=== PATIENT | male | born 1975 | race Caucasian/White ===

== ENCOUNTER 2022-11-29 17:45 | Emergency (ER) | payer MEDICAID, SELFPAY ==
[2022-11-29 17:47] VITALS: BP 135/82; PULSE 107; RESP 22; TEMP 37.2; O2SAT 97; BMI 29.5
--- NOTE | 2022-11-29 17:53 | ECG_ITS ---
APPROVED REPORT Exam: Resting ECG HR:94 bpm ECG Measurements Heart Rate 94 AXES MI 140 P 50 QRSd 89 QRS 23 QT 377 T 28 QTc 429 Conclusion SINUS RHYTHM NONSPECIFIC ST & T-WAVE ABNORMALITY BORDERLINE ECG UNCONFIRMED REPORT Electronically signed by : Abdoulaye Garcia MD 12/01/2022 07:36:30
--- NOTE | 2022-11-29 18:14 | XR_ITS ---
PROCEDURE INFORMATION: Exam: XR Chest Exam date and time: 11/29/2022 6:38 PM Age: 47 years old Clinical indication: Cough; Additional info: SOA, cough TECHNIQUE: Imaging protocol: Radiologic exam of the chest. Views: 2 views. COMPARISON: No relevant prior studies available. FINDINGS: Lungs: Lungs are clear. No consolidation. Pleural spaces: No pleural effusion. No pneumothorax. Heart/Mediastinum: Cardiomediastinal silhouette is normal. Bones/joints: No acute abnormality. Other findings: Subcentimeter indeterminate radiopaque density overlies the anterior left upper abdomen. IMPRESSION: No acute cardiopulmonary disease.
[2022-11-29 18:23] LABS: Influenza A, PCR Not Detected (NotDetected); Influenza B, PCR Not Detected (NotDetected)
[2022-11-29 18:43] LABS: Coronavirus 19, PCR Detected (NotDetected)
--- NOTE | 2022-11-29 19:13 | HMH.EDGENADL ---
Discharge Plan Disposition Patient Disposition: Home, Self-Care Prescriptions Prescriptions: New ondansetron 4 mg tablet,disintegrating 4 mg PO Q8H PRN (Reason: nausea and vomiting) 4 Days Qty: 10 0RF Referrals Follow up/Referrals: Britni Lin [Primary Care Provider] - See instructions Activity Restrictions/Add. Instructions Additional Instructions/Restrictions: At this time it was felt you are safe to be discharged home. If new or worsening symptoms please do not hesitate to return the emergency department. If symptoms persist please follow-up with your family doctor as you are able. Please take medications as prescribed. Clinical Impressions Clinical Impression: COVID-19 Discharge ED Provider: Uday Briones General Adult HPI General Chief complaint: Fever Stated complaint: SOA,vomiting Time Seen by Provider: 11/29/22 18:00 Mode of Arrival: Family Vehicle Source of Information: Patient Limitations: No Limitations Description of Symptoms (Recalled from ER Triage Doc. by RN): Pt c/o headache, body aches, SOA, cough, nausea with dark emesis 1x and continued dry heaves. He also reports fever, t-max 102.5 yesterday. He took Motrin this morning. 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 History of Present Illness HPI narrative: Patient is a 47-year-old male with no pertinent past medical history presents emergency department for evaluation of multiple complaints. Patient has had shortness of breath, cough, vomiting, body aches, headache over the last 24 to 48 hours. Headache is generalized without focal pain. Symptoms refractory to Tylenol and ibuprofen. No other acute complaints at this time. Related Data Previous Rx's Medication Instructions Recorded ondansetron 4 mg disintegrating 4 mg PO Q8H PRN nausea and 11/29/22 tablet vomiting 4 days #10 tabs Allergies Allergy/AdvReac Type Severity Reaction Status Date / Time No Known Allergies Allergy Verified 11/29/22 18:14 [facility] Disclaimer: The information contained in this section may have been updated after the patient was seen, as this information can be updated by other users. Social History Smoking Status: Current every day smoker alcohol intake: never current occupational status: other Travel in the last 8 weeks: None ROS Obtained: Yes Systems reviewed as appropriate & no additional complaints except as documented Physical Exam General General appearance: alert and in no apparent distress Head Head exam: atraumatic and normocephalic Eye Eye exam: Present PERRL and EOMI ENT ENT exam: Present mucous membranes moist Neck Neck exam: Present normal inspection Chest Chest inspection: Present normal inspection and symmetric chest wall rise Respiratory Respiratory exam: Present normal lung sounds bilaterally; Absent respiratory distress Cardiovascular Cardiovascular exam: Present normal rhythm and tachycardia Abdominal Exam Abdominal exam: Present soft; Absent tenderness Extremities Exam Extremities exam: Present normal inspection Neurological Exam Neurological exam: Present alert and CN II-XII intact; Absent motor sensory deficit Psychiatric Psychiatric exam: Present normal affect Skin Skin exam: Present warm and dry Medical Decision Making Noé Inquiry Pt receiving controlled substance: No Vital Signs: 11/29/22 17:47 11/29/22 20:02 Temperature 98.9 F 98.1 F Temperature Source Oral Pulse Rate 83 Pulse Rate [Right] 107 H Respiratory Rate 22 16 Blood Pressure 133/90 Blood Pressure [Right Arm] 135/82 Blood Pressure Mean [Right Arm] 99 Blood Pressure Source [Right Arm] Automatic Cuff 02 Sat by Pulse Oximetry 97 Oxygen Delivery Method Room Air Lab Data Lab Results 11/29/22 17:56: SARS-CoV-2 (PCR) Detected A, Influenza A Untype (PCR) Not detected, Influenza Type B (PCR) Not detected Orders (Doreen
--- NOTE | 2022-11-29 19:49 | PC.NURSE ---
Started PO challenge with water & crackers
[2022-11-29 20:02] VITALS: BP 133/90; PULSE 83; RESP 16; TEMP 36.7
== END 2022-11-29 20:04 | disposition home or self-care (01) ==
PROVIDERS: Emergency Provider Emergency Medicine; PCP Nurse Practitioner
DX: U07.1 COVID-19 (principal); R51.9 Headache, unspecified; R06.02 Shortness of breath; F17.200 Nicotine dependence, unspecified, uncomplicated; R00.0 Tachycardia, unspecified
CPT/HCPCS: 71046; 87636; 93005; 96361; 96374; 96375; 99284; J0131; J2405

== ENCOUNTER 2023-07-07 11:50 | Emergency (ER) | payer MEDICAID, SELFPAY ==
[2023-07-07 11:58] VITALS: BP 110/65; PULSE 88; RESP 20; TEMP 36.9; O2SAT 99; BMI 29.5
--- NOTE | 2023-07-07 12:09 | US_ITS ---
FINAL REPORT CLINICAL HISTORY: vomiting FINDINGS: Sonographic images of the right upper quadrant were obtained. The pancreas is partially obscured.The liver has an unremarkable appearance.The gallbladder appears normal without evidence of gallstones.There is no evidence of biliary ductal dilatation.The common duct measures 4mm. Limited images of the right kidney are unremarkable. IMPRESSION: Unremarkable right upper quadrant ultrasound. Reviewed, Interpreted and Dictated by Cristi Bonilla MD Transcribed by Sarahy Webber Authenticated and [facility]
--- NOTE | 2023-07-07 12:10 | ED_ITS ---
Discharge Plan Disposition Patient Disposition: Home, Self-Care Condition: Good Prescriptions Prescriptions: New ondansetron 4 mg tablet,disintegrating 4 mg PO Q6H PRN (Reason: nausea and vomiting) 4 Days Qty: 16 0RF No Action ondansetron 4 mg tablet,disintegrating 4 mg PO Q8H PRN (Reason: nausea and vomiting) 4 Days Qty: 10 0RF Referrals Follow up/Referrals: Nadia Sam APRN [Primary Care Provider] - See instructions Activity Restrictions/Add. Instructions Additional Instructions/Restrictions: You have been evaluated in the ED for your complaints. You may follow-up with your PCP in the next 3 to 5 days. Please return to ED for any new or worsening symptoms. I have written for Rodolfo to assist with your symptoms at home. Please use this as needed. Clinical Impressions Clinical Impression: Vomiting, Abdominal pain Instructions Patient Instructions: DI for Acute Abdominal Pain Discharge ED Provider: Uday Briones General Adult HPI <Uday Briones MD - Last Filed: 07/07/23 14:56> General Chief complaint: Abdominal Pain Stated complaint: abd pain Time Seen by Provider: 07/07/23 12:00 Mode of Arrival: Ambulatory Source of Information: Patient Limitations: No Limitations Description of Symptoms (Recalled from ER Triage Doc. by RN): pt to ed c/o left sided abd pain. pt states for the last week, every time he eats his stomach cramps on the left side and he vomits. pt states this happens approx 30 mins after a meal. pt denies diarrhea. History of Present Illness HPI narrative: Patient is a 48-year-old male with no pertinent past medical history presents emergency department for evaluation of stomach cramps and vomiting. Onset was acute, over the last week, vomiting is nonbloody. When he eats solids he develops vague periumbilical and epigastric pain, has episodes of vomiting. He is able to tolerate liquid and has continued urine output. No surgeries in his abdomen. No reported chest pain. No other acute complaints at this time. Related Data Previous Rx's Medication Instructions Recorded ondansetron 4 mg disintegrating 4 mg PO Q8H PRN nausea and 11/29/22 tablet vomiting 4 days #10 tabs ondansetron 4 mg disintegrating 4 mg PO Q6H PRN nausea and 07/07/23 tablet vomiting 4 days #16 tabs Allergies Allergy/AdvReac Type Severity Reaction Status Date / Time No Known Allergies Allergy Verified 11/29/22 18:14 PFSH <Uday Briones MD - Last Filed: 07/07/23 14:56> [facility] Disclaimer: The information contained in this section may have been updated after the patient was seen, as this information can be updated by other users. Social History (Updated 11/30/22 @ 00:09 by Uday Briones MD) Smoking Status: Never smoker alcohol intake: never current occupational status: other Travel in the last 8 weeks: None <Uday Briones MD - Last Filed: 07/07/23 14:56> ROS Obtained: Yes Systems reviewed as appropriate & no additional complaints except as documented Physical Exam <Uday Briones MD - Last Filed: 07/07/23 14:56> General General appearance: alert and in no apparent distress Head Head exam: atraumatic and normocephalic Eye Eye exam: Present PERRL and EOMI ENT ENT exam: Present mucous membranes moist Neck Neck exam: Present normal inspection Chest Chest inspection: Present normal inspection and symmetric chest wall rise Respiratory Respiratory exam: Present normal lung sounds bilaterally; Absent respiratory distress Cardiovascular Cardiovascular exam: Present regular rate and normal rhythm Abdominal Exam Abdominal exam: Present soft; Absent tenderness or guarding Extremities Exam Extremities exam: Present normal inspection Neurological Exam Neurological exam: Present alert Psychiatric Psychiatric exam: Present normal affect Skin Skin exam: Present warm and dry Medical Decision Making <Uday Briones MD - Last Filed: 07/07/23 14:56> Noé Inquiry Pt receiving controlled substance: No Vital Signs: 07/07/23 11:58 07/07/23 13:01 07/07/23 15:00 Temperature 98.4 F Temperature Source Oral Pulse Rate 44 L 47 L Pulse Rate [Left Radial] 88 Respiratory Rate 20 Blood Pressure 117/87 130/93 H Blood Pressure [Right Arm] 110/65 Blood Pressure Mean 105 Blood Pressure Mean [Right Arm] 80 02 Sat by Pulse Oximetry 99 96 98 Oxygen Delivery Method Room Air Room Air Lab Data Lab Results 07/07/23 11:58: WBC 5.2, RBC 5.22, Hgb 14.6, Hct 44.3, MCV 85.0, MCH 28.0, MCHC 32.9, RDW 14.3, Plt Count 269, MPV 8.2, Neut % (Auto) 60.1, Lymph % (Auto) 30.9, [place] % (Auto) 5.2, Eos % (Auto) 2.3, Baso % (Auto) 1.5, Neut # (Auto) 3.1, Lymph # (Auto) 1.6, [place] # (Auto) 0.3, Eos # (Auto) 0.1, Baso # (Auto) 0.1, Sodium 141, Potassium 3.7, Chloride 108 H, Carbon Dioxide 28, Anion Gap 8.7, BUN 12, Creatinine 1.00, Estimated Creat Clear 118, Estimated GFR 80, Est GFR ( Amer) 97, Glucose 133 H, Calcium 9.3, Total Bilirubin 0.5, AST 34, ALT 24, Alkaline Phosphatase 86, Troponin I < 0.01, Total Protein 7.0, Albumin 4.2, Globulin 2.8, Albumin/Globulin Ratio 1.5, Lipase 59 07/07/23 14:30: Urine Color Yellow, Urine Appearance Clear, Urine pH 6.0, Ur Specific [place] >= 1.030, Urine Protein Trace, Urine Glucose (UA) Trace, Urine Ketones Negative, Urine Blood Trace-i, Urine Nitrate Negative, Urine Bilirubin 1+ A, Urine Urobilinogen 0.2, Ur Leukocyte Esterase Negative, Urine RBC 3-5, Urine WBC Occasional, Ur Squamous Epith Cells Occasional, Calcium Oxalate Crystal 1+, Urine Bacteria Trace, Urine Mucus Trace 07/07/23 11:58 07/07/23 11:58 Orders (Tests/Meds): ED MEDICATIONS Discontinued Medications Generic Name Dose Route Start Last Admin Trade Name Freq PRN Reason Stop Dose Admin Belladonna Alkaloids 60 ml 07/07/23 12:09 07/07/23 12:11 Belladonna Alkaloids 60 Ml Ml PO 07/07/23 12:10 60 ml ONCE ONE Administration Lactated Ringer's 1,000 mls @ 999 mls/hr 07/07/23 13:49 07/07/23 13:51 Lactated Ringer's 1000 Ml Bag IV 07/07/23 14:49 999 mls/hr .Q1H1M ONE Administration ORDERS Category Date Time Status US RUQ [US abdomen limited] Stat Exams 04/29/24 12:09 Completed CBC w/Auto Diff [Complete Blood Count Auto Diff] Stat Lab 07/07/23 11:58 Completed CMP [Comprehensive Metabolic Panel] Stat Lab 07/07/23 11:58 Completed Lipase Stat Lab 07/07/23 11:58 Completed Trop I [Troponin I] Stat Lab 07/07/23 11:58 Completed Troponin I Q3H Lab 07/07/23 15:15 Ordered Troponin I Q3H Lab 07/07/23 18:15 Ordered UA [Urinalysis and Microscopic] Stat Lab 07/07/23 14:30 Completed ECG Data Tracing #1: Independently interpreted by me, rate 72, rhythm is regular, axis is normal, no ST elevation in anatomical contiguous leads, QTc 425. Medical Decision Narrative: In summary patient is a 48-year-old male past medical history described above who presents emergency department for evaluation of transient abdominal pain and vomiting. Patient is hemodynamically stable nontoxic-appearing upon arrival, afebrile. Patient is not particularly tender in any quadrant of his abdomen. Differential includes symptomatic cholelithiasis, pancreatitis, viral syndrome, atypical ACS, among others. Workup was conducted with hematologic labs, urinalysis, right upper quadrant ultrasound, EKG, single troponin. Initial inventions include Zofran, GI cocktail. Workup reviewed by me, hematologic labs are nonactionable. Ultrasound performed and subsequent evaluation pending at time of transfer care to the oncoming physician, Dr. Cohn. <Yoni Cohn, DO - Last Filed: 07/07/23 15:42> Vital Signs: 07/07/23 11:58 07/07/23 13:01 07/07/23 15:00 Temperature 98.4 F Temperature Source Oral Pulse Rate 44 L 47 L Pulse Rate [Left Radial] 88 Respiratory Rate 20 Blood Pressure 117/87 130/93 H Blood Pressure [Right Arm] 110/65 Blood Pressure Mean 105 Blood Pressure Mean [Right Arm] 80 02 Sat by Pulse Oximetry 99 96 98 Oxygen Delivery Method Room Air Room Air Lab Data Lab Results 07/07/23 11:58: WBC 5.2, RBC 5.22, Hgb 14.6, Hct 44.3, MCV 85.0, MCH 28.0, MCHC 32.9, RDW 14.3, Plt Count 269, MPV 8.2, Neut % (Auto) 60.1, Lymph % (Auto) 30.9, [place] % (Auto) 5.2, Eos % (Auto) 2.3, Baso % (Auto) 1.5, Neut # (Auto) 3.1, Lymph # (Auto) 1.6, [place] # (Auto) 0.3, Eos # (Auto) 0.1, Baso # (Auto) 0.1, Sodium 141, Potassium 3.7, Chloride 108 H, Carbon Dioxide 28, Anion Gap 8.7, BUN 12, Creatinine 1.00, Estimated Creat Clear 118, Estimated GFR 80, Est GFR ( Amer) 97, Glucose 133 H, Calcium 9.3, Total Bilirubin 0.5, AST 34, ALT 24, Alkaline Phosphatase 86, Troponin I < 0.01, Total Protein 7.0, Albumin 4.2, Globulin 2.8, Albumin/Globulin Ratio 1.5, Lipase 59 07/07/23 14:30: Urine Color Yellow, Urine Appearance Clear, Urine pH 6.0, Ur Specific [place] >= 1.030, Urine Protein Trace, Urine Glucose (UA) Trace, Urine Ketones Negative, Urine Blood Trace-i, Urine Nitrate Negative, Urine Bilirubin 1+ A, Urine Urobilinogen 0.2, Ur Leukocyte Esterase Negative, Urine RBC 3-5, Urine WBC Occasional, Ur Squamous Epith Cells Occasional, Calcium Oxalate Crystal 1+, Urine Bacteria Trace, Urine Mucus Trace Orders (Tests/Meds): ED MEDICATIONS Discontinued Medications Generic Name Dose Route Start Last Admin Trade Name Freq PRN Reason Stop Dose Admin Belladonna Alkaloids 60 ml 07/07/23 12:09 07/07/23 12:11 Belladonna Alkaloids 60 Ml Ml PO 07/07/23 12:10 60 ml ONCE ONE Administration Lactated Ringer's 1,000 mls @ 999 mls/hr 07/07/23 13:49 07/07/23 13:51 Lactated Ringer's 1000 Ml Bag IV 07/07/23 14:49 999 mls/hr .Q1H1M ONE Administration ORDERS Category Date Time Status US RUQ [US abdomen limited] Stat Exams 07/07/23 12:09 Completed CBC w/Auto Diff [Complete Blood Count Auto Diff] Stat Lab 07/07/23 11:58 Completed CMP [Comprehensive Metabolic Panel] Stat Lab 07/07/23 11:58 Completed Lipase Stat Lab 07/07/23 11:58 Completed Trop I [Troponin I] Stat Lab 07/07/23 11:58 Completed Troponin I Q3H Lab 07/07/23 15:15 Ordered Troponin I Q3H Lab 07/07/23 18:15 Ordered UA [Urinalysis and Microscopic] Stat Lab 07/07/23 14:30 Completed Medical Decision Narrative: In summary patient is a 48-year-old male past medical history described above who presents emergency department for evaluation of transient abdominal pain and vomiting. Patient is hemodynamically stable nontoxic-appearing upon arrival, afebrile. Patient is not particularly tender in any quadrant of his abdomen. Differential includes symptomatic cholelithiasis, pancreatitis, viral syndrome, atypical ACS, among others. Workup was conducted with hematologic labs, urinalysis, right upper quadrant ultrasound, EKG, single troponin. Initial inventions include Zofran, GI cocktail. Workup reviewed by me, hematologic labs are nonactionable. Ultrasound performed and subsequent evaluation pending at time of transfer care to the oncoming physician, Dr. Cohn. Dr. Cohn: On reassessment the patient lesli medically stable and in no acute distress. He states that his symptoms are much improved at this time. Has been able to tolerate oral intake without return of symptoms. I discussed ED workup and results including unremarkable right upper quadrant ultrasound and urine with no signs of UTI. Discussed that I will send him home with Rodolfo in the setting of his symptoms. Provided with return to ED precautions and instructions concerning PCP follow-up. Patient verbalized understanding and agreement with plan. Subsequently discharged hemodynamically stable and in no acute distress. Critical Care <Uday Briones MD - Last Filed: 07/07/23 14:56> Critical Care Time Critical Care Time: No
[2023-07-07] MEDS: BELLADONNA ALKALOIDS 60 ML ML PO (12:11)
--- NOTE | 2023-07-07 12:14 | ECG_ITS ---
APPROVED REPORT Exam: Resting ECG HR:72 bpm ECG Measurements Heart Rate 72 AXES AL 150 P 46 QRSd 101 QRS 6 QT 401 T 30 QTc 425 Conclusion SINUS RHYTHM WITH SINUS ARRHYTHMIA NONSPECIFIC T-WAVE ABNORMALITY BORDERLINE ECG Electronically signed by : CHELO FERMIN, 07/07/2023 15:21:17
[2023-07-07 12:23] LABS: Basophils # 0.1 K/mm3 (0-0.2); Basophils % 1.5 % (0.1-2.0); Eosinophils # 0.1 K/mm3 (0.0-0.4); Eosinophils % 2.3 % (0.1-12.0); Hematocrit 44.3 % (42.0-52.0); Hemoglobin 14.6 g/dL (14.1-18.0); Lymphocytes # 1.6 K/mm3 (0.7-4.5); Lymphocytes % 30.9 % (10-50); Mean Corpuscular HGB Conc 32.9 g/dL (31.8-35.4); Mean Platelet Volume 8.2 fl (7.4-10.4); Monocytes # 0.3 K/mm3 (0.1-1.0); Monocytes % 5.2 % (1.7-9.3); Neutrophils # 3.1 K/mm3 (1.8-7.8); Neutrophils % 60.1 % (37.0-80.0); Platelet Count 269 K/mm3 (142-424); Red Blood Count 5.22 M/mm3 (4.60-6.20); Red Cell Distribution Width 14.3 % (11.5-17.5); White Blood Count 5.2 K/mm3 (4.8-10.8)
[2023-07-07 12:25] LABS: Alanine Aminotransferase 24 U/L (12-78); Albumin Level 4.2 g/dl (3.5-5.0); Albumin/Globulin Ratio 1.5 (1.1-1.8); Alkaline Phosphatase 86 U/L (38-126); Anion Gap 8.7 mEq/L (5-15); Aspartate Amino Transferase 34 U/L (17-59); Bilirubin,Total 0.5 mg/dl (0.2-1.3); Blood Urea Nitrogen 12 mg/dl (9-20); Calcium 9.3 mg/dl (8.4-10.2); Carbon Dioxide 28 mmol/L (22.0-30.0); Chloride 108 mmol/L (98-107); Creatinine Clearance Estimated 118 mL/min (50-200); Estimated Glomerular Filt Rate 80 ml/min (>60); GFR (African American) 97 ML/MIN (>60); Globulin 2.8 g/dL (1.3-3.2); Glucose 133 mg/dl (74-100); Lipase 59 U/L (23-300); Potassium 3.7 mmoL/L (3.5-5.1); Sodium 141 mmol/L (136-145)
--- NOTE | 2023-07-07 12:27 | PC.NURSE ---
Pt unable to provide urine sample at this time
[2023-07-07 12:39] LABS: Troponin I < 0.01 ng/ml (0.00-0.034)
[2023-07-07 13:01] VITALS: BP 117/87; PULSE 44; O2SAT 96
[2023-07-07] MEDS: LACTATED RINGERS 1000ML 1,000 ML 999 ML IV (13:51)
[2023-07-07 14:47] LABS: Microscopic, Urine URINE MICROSCOPIC (MICROSCOPIC)
[2023-07-07 14:48] LABS: Appearance,Urine CLEAR (Clear); Blood, Urine TRACE-I (Negative); Color,Urine YELLOW (Yellow); Glucose,Urine (UA) TRACE (Negative); Ketones,Urine Negative (Negative); Leukocyte Esterase,Urine Negative (Negative); Nitrate,Urine Negative (Negative); Protein,Urine TRACE (Negative); Specific Gravity, Urine >= 1.030 (1.005-1.030); Urobilinogen,Urine 0.2 EU/dl (0.2)
[2023-07-07 15:00] VITALS: BP 130/93; PULSE 47; O2SAT 98
[2023-07-07 15:03] LABS: Bilirubin,Urine 1+ (Negative)
[2023-07-07 15:14] LABS: Bacteria,Urine Trace /lpf; Calcium Oxalate Crystals,Urine 1+ /lpf; Mucus,Urine Trace /lpf; Squamous Epithelial Cell,Urine Occasional #/hpf (0-5); WBC,Urine Occasional #/hpf (0-3)
--- NOTE | 2023-07-07 15:25 | PC.NURSE ---
spoke with radiology, staff is following up to get a read for us
--- NOTE | 2023-07-07 15:29 | PC.NURSE ---
pt able to drink with no issues at this time
[2023-07-07 15:50] VITALS: BP 134/102; PULSE 52; RESP 18; TEMP 36.9; O2SAT 97
== END 2023-07-07 15:51 | disposition home or self-care (01) ==
PROVIDERS: Emergency Provider Emergency Medicine; PCP Family Medicine
DX: R10.9 Unspecified abdominal pain (principal); R11.2 Nausea with vomiting, unspecified
CPT/HCPCS: 76705; 80053; 81001; 83690; 84484; 85025; 93005; 96360; 99284

== ENCOUNTER 2024-03-06 13:18 | Emergency (ER) | payer MEDICAID, SELFPAY ==
[2024-03-06 13:17] VITALS: BP 140/90; PULSE 90; RESP 16; TEMP 36.9; O2SAT 99
[2024-03-06 13:18] VITALS: BMI 28.7
--- NOTE | 2024-03-06 13:18 | PC.NURSE ---
DR FERMIN AT BEDSIDE
--- NOTE | 2024-03-06 13:23 | ECG_ITS ---
APPROVED REPORT Exam: Resting ECG HR:73 bpm ECG Measurements Heart Rate 73 AXES VA 137 P 32 QRSd 90 QRS -17 QT 397 T 10 QTc 423 Conclusion SINUS RHYTHM WITH SINUS ARRHYTHMIA NORMAL ECG Electronically signed by : CHELO FERMIN, 03/09/2024 07:05:31
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
[2024-03-06 13:33] LABS: Albumin Level 4.4 g/dl (3.5-5.0); Basophils # 0.1 K/mm3 (0-0.2); Basophils % 0.9 % (0.1-2.0); Chloride 102 mmol/L (98-107); Eosinophils # 0.3 K/mm3 (0.0-0.4); Eosinophils % 3.9 % (0.1-12.0); Hematocrit 47.3 % (42.0-52.0); Hemoglobin 15.3 g/dL (14.1-18.0); Lymphocytes # 1.8 K/mm3 (0.7-4.5); Lymphocytes % 27.1 % (10-50); Mean Corpuscular HGB Conc 32.3 g/dL (31.8-35.4); Mean Corpuscular Hemoglobin 27.2 pg (27.0-31.2); Mean Platelet Volume 10.7 fl (7.4-10.4); Monocytes # 0.6 K/mm3 (0.1-1.0); Monocytes % 8.8 % (1.7-9.3); Neutrophils # 3.8 K/mm3 (1.8-7.8); Neutrophils % 59.1 % (37.0-80.0); Platelet Count 244 K/mm3 (142-424); Potassium 4.2 mmoL/L (3.5-5.1); Red Blood Count 5.63 M/mm3 (4.60-6.20); Red Cell Distribution Width 13.1 % (11.5-17.5); Sodium 135 mmol/L (136-145); White Blood Count 6.5 K/mm3 (4.8-10.8)
[2024-03-06 13:35] LABS: Blood Urea Nitrogen 10 mg/dl (9-20)
[2024-03-06 13:36] LABS: Alanine Aminotransferase 26 U/L (12-78); Albumin/Globulin Ratio 1.6 (1.1-1.8); Alkaline Phosphatase 128 U/L (38-126); Anion Gap 9.2 mEq/L (5-15); Aspartate Amino Transferase 42 U/L (17-59); Bilirubin,Total 0.8 mg/dl (0.2-1.3); Calcium 9.5 mg/dl (8.4-10.2); Carbon Dioxide 28 mmol/L (22.0-30.0); Creatinine Clearance Estimated 99 mL/min (50-200); Estimated Glomerular Filt Rate 65 ml/min (>60); GFR (African American) 79 ML/MIN (>60); Globulin 2.8 g/dL (1.3-3.2); Glucose 117 mg/dl (74-100); Total Protein,Serum 7.2 g/dl (6.3-8.2)
[2024-03-06 13:40] LABS: INR 0.95 (0.9-1.1); Prothrombin Time 10.7 seconds (10.1-12.5)
[2024-03-06 13:46] LABS: Ethyl Alcohol < 10 mg/dl (0-10)
[2024-03-06 13:56] VITALS: BP 133/89; PULSE 96; O2SAT 96
[2024-03-06] MEDS: IOPAMIDOL-370 (76%);100ML BOTTLE 80 ML IV (13:59)
[2024-03-06] MEDS: 0.9 % SODIUM CHLORIDE 50 ML VIAL IV (13:59)
[2024-03-06] MEDS: SODIUM CHLORIDE 0.9% 10ML SYR (RAD ONLY) 10 ML IV (13:59)
[2024-03-06 14:15] VITALS: BP 139/84; PULSE 78; O2SAT 96
[2024-03-06] MEDS: FENTANYL 100MCG/2ML VIAL 80 MCG IV (14:16)
[2024-03-06 14:45] VITALS: PULSE 66; O2SAT 96
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
[2024-03-06 15:00] VITALS: BP 127/81; PULSE 60; O2SAT 97
[2024-03-06 15:16] VITALS: BP 131/85; PULSE 84; RESP 16; TEMP 36.8; O2SAT 99
== END 2024-03-06 15:17 | disposition home or self-care (01) ==
PROVIDERS: Emergency Provider Emergency Medicine; PCP Nurse Practitioner
DX: R10.12 Left upper quadrant pain (principal); R10.32 Left lower quadrant pain; M54.50 Low back pain, unspecified; V89.2XXA Person injured in unspecified motor-vehicle accident, traffic, initial encounter; Y93.89 Activity, other specified; Y92.410 Unspecified street and highway as the place of occurrence of the external cause
CPT/HCPCS: 70450; 71045; 71275; 72125; 72128; 72131; 72170; 74174; 80053; 80320; 85025; 85610; 93005; 96374; 99285; G0480; J3010; Q9967

== ENCOUNTER 2024-03-08 08:30 | Emergency (ER) | payer SELFPAY ==
[2024-03-08 08:46] VITALS: BP 133/96; PULSE 94; RESP 18; TEMP 36.8; O2SAT 98; BMI 31.0
--- NOTE | 2024-03-08 08:58 | PC.NURSE ---
Dr. Live at bedside
[2024-03-08 09:00] VITALS: BP 132/96; PULSE 91; O2SAT 97
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
[2024-03-08] MEDS: LIDOCAINE 5% TRANSDERMAL PATCH 1 EACH TP (09:02)
[2024-03-08] MEDS: KETOROLAC 30MG/ML VIAL 30 MG IM (09:02)
[2024-03-08] MEDS: predniSONE 20MG TAB 60 MG PO (09:02)
[2024-03-08] MEDS: ACETAMINOPHEN 500MG TAB 1000 MG PO (09:02)
[2024-03-08 09:12] VITALS: BP 132/96; PULSE 97; RESP 18; TEMP 36.8; O2SAT 98
== END 2024-03-08 09:14 | disposition home or self-care (01) ==
PROVIDERS: Emergency Provider Student in an Organized Health Care Education/Training Program; PCP Family Medicine
DX: M54.50 Low back pain, unspecified (principal); M79.604 Pain in right leg
CPT/HCPCS: 96372; 99283; J1885

== ENCOUNTER 2024-06-18 10:13 | Emergency (ER) | payer MEDICAID, SELFPAY ==
[2024-06-18] VITALS (8 sets, daily range): BP systolic 125–156; BP diastolic 83–109; PULSE 72–94; RESP 13–16; TEMP 36.8–37.1; O2SAT 95–99; BMI 31.0
--- NOTE | 2024-06-18 10:18 | ECG_ITS ---
APPROVED REPORT Exam: Resting ECG HR:74 bpm ECG Measurements Heart Rate 74 AXES PA 135 P 48 QRSd 89 QRS 20 QT 316 T 53 QTc 343 Conclusion SINUS RHYTHM NONSPECIFIC T-WAVE ABNORMALITY BORDERLINE ECG UNCONFIRMED REPORT Electronically signed by : DARIEL BENITEZ, 06/20/2024 03:41:39
--- NOTE | 2024-06-18 10:26 | XR_ITS ---
FINAL REPORT CLINICAL HISTORY: Shortness of breath COMPARISON: 03/06/2024 FINDINGS: No acute pulmonary opacity is present. There is no evidence of effusion or pneumothorax. Mediastinum is unremarkable. Heart size is normal. IMPRESSION: No acute abnormality. Reviewed, Interpreted and Dictated by Cristi Bonilla MD Transcribed by Karley Pierson Authenticated and [facility]
--- NOTE | 2024-06-18 10:27 | ED_ITS ---
Discharge Plan Disposition Patient Disposition: Home, Self-Care Chief Complaint: Shortness of Breath/Dyspnea Prescriptions Prescriptions: No Action ondansetron 4 mg tablet,disintegrating 4 mg PO Q8H PRN (Reason: nausea and vomiting) 4 Days Qty: 10 0RF methocarbamol 500 mg tablet 1,000 mg PO Q8H PRN (Reason: muscle pain and spasm) Qty: 30 0RF ondansetron 4 mg tablet,disintegrating 4 mg PO Q6H PRN (Reason: nausea and vomiting) 4 Days Qty: 16 0RF lidocaine 4 % adhesive patch,medicated 1 patch topical DAILY Qty: 5 0RF Rx Instructions: may leave on for up to 12 hrs ibuprofen 800 mg tablet 800 mg PO TID PRN (Reason: pain) 7 Days Qty: 20 0RF prednisone 50 mg tablet 50 mg PO DAILY 5 Days Qty: 5 0RF Rx Instructions: Please begin 1 day after ED visit Referrals Follow up/Referrals: Nadia Sam APRN [Primary Care Provider] - See instructions Per Riley MD [Staff Physician] - See instructions Activity Restrictions/Add. Instructions Additional Instructions/Restrictions: At this time it was felt you are safe to be discharged home. If new or worsening symptoms please do not hesitate to return the emergency department. Please call and schedule appoint with Dr. Riley as soon as you are able. Clinical Impressions Clinical Impression: Dyspnea Print Language Print Language: Latvian Discharge ED Provider: Uday Briones [facility] General Chief Complaint: Shortness of Breath/Dyspnea Stated Complaint: sob, fatigue, feet swelling, weak Time Seen by Provider: 06/18/24 10:15 History of Present Illness HPI narrative: Patient is a 49-year-old male with past medical history of COPD not on home oxygen who presents emergency department for evaluation of shortness of breath. He has had intermittent shortness of breath subacutely however over the last 24 to 48 hours he has noticed his feet intermittently swelling bilaterally, he has difficulty lying flat in bed and has to use multiple pillows, and has dyspnea on exertion. He has had previous intermittent chest pain but does not have any chest pain currently. No trauma. No other acute complaints at this time no cough. Please note that above description of symptoms, in this electronic medical record under categorization of recalled from ER triage doctor by RN are reflective of an initial nursing assessment, however, is not reflective of my full history and physical exam that was personally taken and clarified. Consequentially, this preceding description of symptoms, which may include the patient's categorized chief complaint in the EMR, do not reflect my personal clinical impression, and the ultimate description of history of present illness and patient stated complaints should be deferred to this section of the note. Unless stated otherwise or congruent with this section of the note, additional signs, symptoms, or incongruence should be interpreted as inaccurate with my clinical impression. Related Data Previous Rx's ?Medication ?Instructions ?Recorded ondansetron 4 mg disintegrating 4 mg PO Q8H PRN nausea and 11/29/22 tablet vomiting 4 days #10 tabs ondansetron 4 mg disintegrating 4 mg PO Q6H PRN nausea and 07/07/23 tablet vomiting 4 days #16 tabs methocarbamol 500 mg tablet 1,000 mg (2 x 500 mg) PO Q8H PRN 03/06/24 muscle pain and spasm #30 tabs ibuprofen 800 mg tablet 800 mg PO TID PRN pain 7 days #20 03/08/24 tabs lidocaine 4 % topical patch 1 patch topical DAILY #5 ea 03/08/24 prednisone 50 mg tablet 50 mg PO DAILY 5 days #5 tabs 03/08/24 Allergies Allergy/AdvReac Type Severity Reaction Status Date / Time No Known Allergies Allergy Verified 03/08/24 09:00 [facility] Disclaimer: The information contained in this section may have been updated after the patient was seen, as this information can be updated by other users. Social History (Updated 11/30/22 @ 00:09 by Uday Briones MD) Smoking Status: Former smoker alcohol intake: never current occupational status: other Travel in the last 8 weeks: None Have you lived/traveled outside [place] in past 30 days?: No Contact w/someone who lives/traveled outside [place] past 30 days?: No Exposure to someone with infectious disease in past 14 days?: No Do you have a fever (greater than 100.4 F or 38 C)?: No Have you tested positive for COVID-19: No Exposed to someone with COVID-19 in past 14 days?: No Do you have a sore throat?: No Do you have a cough?: No Do you have any weakness?: No Do you have any diarrhea?: No Are you experiencing any unusual bleeding?: No Do you have any muscle aches/pain?: No Do you have any abdominal pain?: No Are you experiencing loss of taste or smell?: No ROS Obtained: Yes Systems reviewed as appropriate & no additional complaints except as documented Physical Exam General General appearance: alert and in no apparent distress Head Head exam: atraumatic and normocephalic Eye Eye exam: Present PERRL and EOMI ENT ENT exam: Present mucous membranes moist Neck Neck exam: Present normal inspection Chest Chest inspection: Present normal inspection and symmetric chest wall rise Respiratory Respiratory exam: Present normal lung sounds bilaterally; Absent respiratory distress, wheezes or stridor Cardiovascular Cardiovascular exam: Present regular rate and normal rhythm Abdominal Exam Abdominal exam: Present soft; Absent tenderness Extremities Exam Extremities exam: Present normal inspection and other (No significant pitting edema BLE) Neurological Exam Neurological exam: Present alert Psychiatric Psychiatric exam: Present normal affect Skin Skin exam: Present warm and dry HEART Score HEART Score HEART Score assessment performed?: Yes History (anamnesis): Slightly suspicious ECG: Non-specific disturbance Age: 45-65 years Risk factors: 1-2 risk factors Troponin: </= normal limit HEART Score: 3 Critical Care Critical Care Time Critical Care Time: No Medical Decision Making Noé Inquiry Pt receiving controlled substance: No Vital Signs Vital Signs: 06/18/24 10:22 06/18/24 10:26 06/18/24 10:30 Temperature Temperature Source Pulse Rate 92 H 92 H 75 Pulse Rate [Left Radial] Respiratory Rate 14 13 13 Blood Pressure 156/107 H 129/98 H 136/95 H Blood Pressure [Right Arm] Blood Pressure Mean Blood Pressure Mean [Right Arm] Blood Pressure Source [Right Arm] Blood Pressure Position [Right Arm] 02 Sat by Pulse Oximetry 99 98 98 Oxygen Delivery Method Room Air Room Air Room Air 06/18/24 10:32 06/18/24 11:00 06/18/24 11:30 Temperature 98.2 F Temperature Source Oral Pulse Rate 72 77 Pulse Rate [Left Radial] 85 Respiratory Rate 13 14 16 Blood Pressure 128/89 125/83 Blood Pressure [Right Arm] 139/109 H Blood Pressure Mean 107 97 Blood Pressure Mean [Right Arm] 119 Blood Pressure Source [Right Arm] Automatic Cuff Blood Pressure Position [Right Arm] Supine 02 Sat by Pulse Oximetry 97 95 96 Oxygen Delivery Method 06/18/24 12:00 Temperature Temperature Source Pulse Rate 85 Pulse Rate [Left Radial] Respiratory Rate 13 Blood Pressure 125/83 Blood Pressure [Right Arm] Blood Pressure Mean 97 Blood Pressure Mean [Right Arm] Blood Pressure Source [Right Arm] Blood Pressure Position [Right Arm] 02 Sat by Pulse Oximetry 96 Oxygen Delivery Method Lab Data Labs: Lab Results 06/18/24 10:27: VBG pH 7.36, VBG pCO2 46.6, VBG pO2 46.1 H, VBG HCO3 25.6, VBG Total CO2 27.0, VBG O2 Saturation 82.2 H, VBG Base Excess 0.1, VBG Lactic Acid 2.1 H 06/18/24 10:28: WBC 7.0, RBC 5.53, Hgb 14.7, Hct 45.6, MCV 82.5, MCH 26.6 L, MCHC 32.2, RDW 13.5, Plt Count 286, MPV 10.1, Neut % (Auto) 43.7, Lymph % (Auto) 35.7, [place] % (Auto) 12.0 H, Eos % (Auto) 7.3, Baso % (Auto) 1.0, Neut # (Auto) 3.1, Lymph # (Auto) 2.5, [place] # (Auto) 0.8, Eos # (Auto) 0.5 H, Baso # (Auto) 0.1, D-Dimer 0.71 H, Sodium 137, Potassium 3.7, Chloride 100, Carbon Dioxide 26, Anion Gap 14.7, BUN 10, Creatinine 1.00, Estimated Creat Clear 123, Estimated GFR 80, Est GFR ( Amer) 97, Glucose 115 H, Calcium 8.6, Total Bilirubin 0.7, AST 40, ALT 20, Alkaline Phosphatase 122, Troponin I < 0.01, NT-Pro-B Natriuret Pep 29.6, Total Protein 7.3, Albumin 4.0, Globulin 3.3 H, Albumin/Globulin Ratio 1.2, HCV Ab SEAN w/Rflx PCR Qn Negative, HIV Ag/Ab Combo Qual Negative 06/18/24 10:28 06/18/24 10:28 Response Orders (Tests/Meds): ED MEDICATIONS Discontinued Medications Generic Name Dose Route Start Last Admin Trade Name Freq PRN Reason Stop Dose Admin Iopamidol 80 ml 06/18/24 11:19 06/18/24 11:20 Iopamidol-370 (76%);100ml Bottle IV 06/18/24 11:20 70 ml ONCE ONE Administration Sodium Chloride 10 ml 06/18/24 11:19 06/18/24 11:20 Sodium Chloride 0.9% 10ml Syr (Rad Only) IV 06/18/24 11:20 10 ml ONCE ONE Administration Sodium Chloride 50 ml 06/18/24 11:19 06/18/24 11:20 0.9 % Sodium Chloride 50 Ml Vial IV 06/18/24 11:20 50 ml ONCE ONE Administration ORDERS Category Date Time Status CT angio chest PE protocol Stat Cat Scan 06/18/24 11:12 Completed CXR --portable [XR chest portable] Stat Exams 06/18/24 10:26 Completed POCUS Point of Care (ER Only) Stat Exams 06/18/24 10:26 Taken BNP [NT Pro Brain Natriuretic Pep.] Stat Lab 06/18/24 10:28 Completed CBC w/Auto Diff [Complete Blood Count Auto Diff] Stat Lab 06/18/24 10:28 Completed CMP [Comprehensive Metabolic Panel] Stat Lab 06/18/24 10:28 Completed D-Dimer Stat Lab 06/18/24 10:28 Completed HIV Combo Stat Lab 06/18/24 10:28 Completed Hepatitis C Ab Qual. W/ RFX Stat Lab 06/18/24 10:28 Completed Trop I [Troponin I] Stat Lab 06/18/24 10:28 Completed Troponin I Q3H Lab 06/18/24 13:30 Ordered Troponin I Q3H Lab 06/18/24 16:30 Ordered VBG [Venous Blood Gas] Stat RT 06/18/24 10:27 Completed ECG Data Tracing #1: ECG Narrative: Independently interpreted by me rate is 74, rhythm is regular, axis is normal, no ST elevation in anatomical contiguous leads, QTc 343. MDM Narrative Medical Decision Narrative: In summary patient is a 49-year-old male with past medical history described above who presents emergency department for evaluation of shortness of breath. Patient is hemodynamically stable nontoxic-appearing upon arrival, afebrile. Patient's history is strongly consistent with developing some degree of heart failure. Differential includes ACS, pulmonary embolism, among others. Workup we conducted with hematologic labs, chest x-ray, EKG, troponin, VBG, POCUS. Initial work reviewed by me, no significant leukocytosis or anemia, D-dimer mildly elevated with compensated acid-base status given his significantly shortness of breath screening for PE will be conducted with CTA pulmonary embolism protocol. Initial troponin undetectably low, no critical electrolyte abnormality or JASON. CT imaging informally and visualized by me, no large saddle PE. Formal read shows no acute pathology. Upon repeat evaluation patient was well-appearing. Given his significant dyspnea on exertion and orthopnea I think he will benefit from cardiology evaluation which he will be referred to on outpatient basis and was given return precautions. Procedure: Procedure performed was cardiac ultrasound Indication: Shortness of breath Identified cardiac views: Cardiac parasternal long axis and apical four-chamber Findings: Cardiac activity present, gross wall motion normal, no large pericardial effusion, normal EPSS. Impression: - From above Images were saved to permanent archive The study was technically adequate CPT: 90015 This study was performed by me, and I personally interpreted all images/videos. Based on my clinical judgement, these images were adequate and did not necessitate further imaging.
[2024-06-18 10:37] LABS: Lactate Venous 2.1 mmol/L (0.4-2.0); VBG Base Excess 0.1 mmol/L (-2.4-2.3); VBG HCO3 25.6 mmol/L (23-30); VBG Oxygen Saturation 82.2 % (50-70); VBG PCO2 46.6 mmol/L (35-51); VBG PH 7.36 mmol/L (7.31-7.41); VBG PO2 46.1 mmol/L (28-40)
[2024-06-18 10:41] LABS: Basophils # 0.1 K/mm3 (0-0.2); Eosinophils # 0.5 K/mm3 (0.0-0.4); Eosinophils % 7.3 % (0.1-12.0); Hematocrit 45.6 % (42.0-52.0); Hemoglobin 14.7 g/dL (14.1-18.0); Lymphocytes # 2.5 K/mm3 (0.7-4.5); Lymphocytes % 35.7 % (10-50); Mean Corpuscular HGB Conc 32.2 g/dL (31.8-35.4); Mean Corpuscular Hemoglobin 26.6 pg (27.0-31.2); Mean Corpuscular Volume 82.5 fl (80-94); Mean Platelet Volume 10.1 fl (7.4-10.4); Monocytes # 0.8 K/mm3 (0.1-1.0); Neutrophils # 3.1 K/mm3 (1.8-7.8); Neutrophils % 43.7 % (37.0-80.0); Nucleated Red Blood Cells # 0 10^3/uL; Nucleated Red Blood Cells % 0 %; Platelet Count 286 K/mm3 (142-424); Red Blood Count 5.53 M/mm3 (4.60-6.20); Red Cell Distribution Width 13.5 % (11.5-17.5); Red Cell Distribution Width-SD 40.7 fL
[2024-06-18 10:49] LABS: Alanine Aminotransferase 20 U/L (12-78); Albumin/Globulin Ratio 1.2 (1.1-1.8); Alkaline Phosphatase 122 U/L (38-126); Anion Gap 14.7 mEq/L (5-15); Aspartate Amino Transferase 40 U/L (17-59); Bilirubin,Total 0.7 mg/dl (0.2-1.3); Blood Urea Nitrogen 10 mg/dl (9-20); Calcium 8.6 mg/dl (8.4-10.2); Carbon Dioxide 26 mmol/L (22.0-30.0); Chloride 100 mmol/L (98-107); Creatinine Clearance Estimated 123 mL/min (50-200); Estimated Glomerular Filt Rate 80 ml/min (>60); GFR (African American) 97 ML/MIN (>60); Globulin 3.3 g/dL (1.3-3.2); Glucose 115 mg/dl (74-100); Potassium 3.7 mmoL/L (3.5-5.1); Sodium 137 mmol/L (136-145); Total Protein,Serum 7.3 g/dl (6.3-8.2)
[2024-06-18 10:53] LABS: D-Dimer 0.71 ug/mL (0.0-0.5)
[2024-06-18 11:01] LABS: NT Pro Brain Natriuretic Pep. 29.6 pg/mL (0-125)
[2024-06-18 11:02] LABS: Troponin I < 0.01 ng/ml (0.00-0.034)
--- NOTE | 2024-06-18 11:12 | CT_ITS ---
FINAL REPORT TECHNIQUE: Thin section axial CT with contrast with multiplanar reconstruction This study was performed with techniques to keep radiation doses as low as reasonably achievable, (ALARA). Individualized dose reduction techniques using automated exposure control or adjustment of mA and/or kV according to the patient''s size were employed. CLINICAL HISTORY: sob elevated dimer COMPARISON: 03/06/2024 FINDINGS: Respiratory motion artifact limits assessment of subsegmental pulmonary artery branches. Pulmonary vessels enhance in normal fashion without evidence of embolism. Thoracic aorta shows no dissection or aneurysm. Groundglass opacities probably reflect poor inspiration. No pneumonia or mass is identified. There is no significant pleural effusion. There is no significant pericardial effusion. No mediastinal or hilar adenopathy is present. IMPRESSION: No gross pulmonary embolism. No obvious pneumonia. Reviewed, Interpreted and Dictated by Cristi Bonilla MD Transcribed by Nadya Harris Authenticated and . [facility]
[2024-06-18] MEDS: SODIUM CHLORIDE 0.9% 10ML SYR (RAD ONLY) 10 ML IV (11:20)
[2024-06-18] MEDS: 0.9 % SODIUM CHLORIDE 50 ML VIAL IV (11:20)
[2024-06-18] MEDS: IOPAMIDOL-370 (76%);100ML BOTTLE 80 ML IV (11:20)
--- NOTE | 2024-06-18 11:24 | PC.NURSE ---
pt came back from ct
[2024-06-18 11:43] LABS: HIV Combo NEGATIVE (Negative)
[2024-06-18 11:50] LABS: Hepatitis C Ab Qual. W/ RFX NEGATIVE (Negative)
[2024-06-18 14:38] LABS: Reflex Lactic Add Lactic Reflex
== END 2024-06-18 12:28 | disposition home or self-care (01) ==
PROVIDERS: Emergency Provider Emergency Medicine; PCP Family Medicine
DX: R06.00 Dyspnea, unspecified (principal)
CPT/HCPCS: 71045; 71275; 80053; 82803; 83880; 84484; 85025; 85378; 86803; 87389; 93005; 99285; Q9967

== ENCOUNTER 2024-07-14 12:21 | Outpatient (CLI) | payer MEDICAID, SELFPAY ==
--- NOTE | 2024-07-14 | CA_ITS ---
APPROVED REPORT Exam: Pharmacologic Technologist: Denise House Ht: 5 ft 9 in Wt: 215 lbs BSA: 2.13 m2 HR: 68 bpm BP: 130/83 mmHg Stress Test Details Test: Lexiscan HR Resting HR: 68 bpm Max Heart Rate (APMHR): 173 bpm Max HR Achieved: 96 bpm Target HR (85% APMHR): 147 bpm % of APMHR: 55 Recovery HR: 82 bpm BP Resting BP: 130.0/83.0 mmHg Max BP: 133.0/82.0 mmHg Recovery BP: 133.0/82.0 mmHg ECG Stress ECG Conclusion Symptoms: Shortness of air with Lexiscan infusion. Arrhythmias/Ectopy: ST-T Changes: Unremarkable with Lexiscan infusion. Electronically signed by : Lori Mercado MD 07/15/2024 12:48:06
--- NOTE | 2024-07-14 13:00 | NM_ITS ---
APPROVED REPORT Exam: Nuclear Stress Test Indication: htn, hyperlipidemia, fm hx, cp, sob, fatigue Patient Location: Outpatient Stress Tech: Denise House AL Tech:Mari Booker SAVANA RT (R)(N)(M) Ht: 5 ft 9 in Wt: 215 lbs HR: 70 bpm BP: 130/83 mmHg BSA: 2.13 m2 TID: 1.02 BMI: 31.7 History: htn, hyperlipidemia, fm hx, cp, sob, fatigue Procedure: Patient received 0.4 mg of intravenous Lexiscan, resting heart rate 70 bpm, resting blood pressure 130/83 mmHg, with Lexiscan maximum heart rate achieved was 96 bpm which is % of the maximum predicted heart rate and blood pressure was 130/78 mmHg. With Lexiscan, patient denied any complaint of chest pain. Cardiac Stress and Resting SPECT Images: Cardiac Stress and Resting SPECT images were obtained using technetium 99m Myoview 30.7 mCi stress and 10.70 mCi at rest. Resting and stress imaging in supine and prone positions demonstrate large sized, moderate, partially reversible perfusion defect in the inferior LV wall. Gated imaging demonstrates normal global LV systolic function. There is mild hypokinesis of the basal inferior LV wall. LVEF is calculated at 54%. Conclusion: Large sized, moderate, partially reversible perfusion defect in the inferior LV wall. Findings are suggestive of partial reversible ischemia. Gated imaging demonstrates normal global LV systolic function. There is mild hypokinesis of the basal inferior LV wall. LVEF is calculated at 54%. Electronically signed by : Lori Mercado MD 07/15/2024 12:40:43
== END 2024-07-14 23:59 | disposition home or self-care (01) ==
LOC: RAD 12:22
PROVIDERS: PCP Family Medicine; Visit Provider Physician Assistant
DX: R07.89 Other chest pain (principal); R42 Dizziness and giddiness; R94.31 Abnormal electrocardiogram [ECG] [EKG]; R06.09 Other forms of dyspnea
CPT/HCPCS: 78452; 93017; 93018

== ENCOUNTER 2024-07-16 14:33 | Outpatient (CLI) | payer OTHER, SELFPAY | END 2024-07-16 23:59 | disposition home or self-care (01) | PROVIDERS: PCP Family Medicine; Visit Provider Family Medicine | DX: Z53.9 Procedure and treatment not carried out, unspecified reason (principal) ==

== ENCOUNTER 2024-07-30 07:27 | Outpatient (CLI) | payer OTHER, SELFPAY | END 2024-07-30 23:59 | disposition home or self-care (01) | PROVIDERS: PCP Family Medicine; Visit Provider Family Medicine | DX: T14.90XD Injury, unspecified, subsequent encounter (principal); V89.2XXD Person injured in unspecified motor-vehicle accident, traffic, subsequent encounter ==

== ENCOUNTER 2024-08-13 15:04 | Outpatient (CLI) | payer MEDICAID, SELFPAY ==
--- OUTSIDE RECORDS SUMMARY | 2024-08-13 15:08 | XMS_ITS | Encounter Summary ---
Author Organization [facility] Address [address] [place] [id number] Care Team Providers Care Superintendent Service Name Role Phone Britni Fletcher APRN Primary Care Provi emperatriz Nadia Shin APRN Primary Care Provider + Encounter Details Date Type Department Care Team (Late st Contact Info) Description 10/22/2021 Transcribed Document [facility] [place] [address] [place] [address] ProviderRodri MD [address] [place] [address] Social History Tobacco Use Types Packs/Day Years Used Date Smoking Tobacco: Never Assessed Sex and Gender Information Value Date Recorded Sex Assigned at Not on file Legal Sex Male 5:37 PM CDT Gender Identity Not on file Sexual Orientation Not on file documented as of this encounter Miscellaneous Notes * Cerner Conversion Note - Rodri Vitale MD - 10/22/2021 10:47 AM CDT [facility] [address] [place] [address] TARAH HAMLIN :1975 Visit Time:10/22/2021 Your Visit Summary Your Care Team Admitting Physician - CHRISTIANO BRUNSON MD-KELLY Attending Physician - CHRISTIANO BRUNSON MD-CAR Primary Care Physician - NADIA SHIN Referring Physician - CHRISTIANO BRUNSON MD-CAR These Are Your Goals No qualifying data available. Discharge Vitals Temperature 36.4 ??C Respiratory Rate 16 Blood Pressure 138/94 What to do next Follow-Up Appointments Follow Up with CHRISTIANO BRUNSON MD-CAR When Within 1 to 2 weeks Where: [address] [place] [address]- Medications What How Much When Instructions Next Dose aspirin 81 Milligram(s) Oral Every Morning atorvastatin (atorvastatin 10 mg oral tablet) 1 Tablet(s) Oral Every Evening hydroCHLOROthiazide (hydroCHLOROthiazide 25 mg oral tablet) 1 Tablet(s) Oral Every Morning methaDONE 55 Milligram(s) Every Morning Take your medications faithfully. Do NOT skip medication. Do NOT stop taking medications without the direction of a physician. Carry a list of your medications with you at all times, and take this medication list with you to your first follow up visit. Report any side effects. Avoid herbal remedies unless discussed with your physician. As part of your treatment plan, your physician may have prescribed a limited course of a controlled substance. This medication may be given to help people with moderate or severe pain or for other medical conditions, but there are risks involved with treatment. Common side effects may include nausea, constipation, drowsiness, sweating, itching, dry mouth, and rash. More serious side effects may include cognitive and motor impairment, like problems with thinking, concentrating, alertness, and movement (e.g. slowed reflexes), and driving and operating heavy machinery can be dangerous. It is important for you to talk to your physician if you have these side effects or questions. These controlled substances can produce physical dependence and be habit-forming if taken for an extended period of time, which means that the body has gotten used to them and may experience withdrawal symptoms if they are abruptly stopped. Withdrawal symptoms can include runny nose, sweating, goose bumps, diarrhea, abdominal cramping, rapid heartbeat, difficulty sleeping, and nervousness. Please dispose of unused and medications per your retail pharmacy guidance. Allergies No Known Allergies Immunizations This Visit No Immunizations Found Education Materials Exercise Stress Test An exercise stress test is a test that is done to collect information about how your heart functions during exercise. The test is done while you are walking on a treadmill or using a stationary bike. The goal is to raise your heart rate and stress the heart. The heart is evaluated before, during, and after you exercise. An electrocardiogram (ECG) will be used to monitor the heart, and your blood pressure will also be monitored. In some cases, nuclear scanning or an ultrasound of the heart (echocardiogram) will also be done to evaluate your heart. An exercise stress test is done to look for coronary artery disease (CAD). The test may also be done to: ??? Evaluate your limits of exercise during cardiac rehabilitation. ??? Check for high blood pressure during exercise. ??? Check how well you can exercise after such treatments as coronary stenting or new medicines. ??? Check for problems with blood flow to your arms and legs during exercise. If you have an abnormal test result, this may mean that you are not getting enough blood flow to your heart during exercise. More testing may be needed to understand why your test was not normal. Tell a health care provider about: ??? Any allergies you have. ??? All medicines you are taking, including vitamins, herbs, eye drops, creams, and kxgw-ury-rvxkoyp medicines. ??? Any blood disorders you have. ??? Any surgeries you have had. ??? Any medical conditions you have. ??? Whether you are or may be . What are the risks? Generally, this is a safe procedure. However, problems may occur, including: ??? Pain or pressure in the following areas: ? Chest. ? Jaw or neck. ? Between your shoulder blades. ? Down your left arm. ??? Dizziness or lightheadedness. ??? Shortness of breath. ??? Increased or irregular heartbeats. ??? Nausea or vomiting. ??? Heart attack (rare). ??? Life-threatening abnormal heart rhythm (rare). What happens before the procedure? Follow instructions from your health care provider about eating or drinking restrictions. ? You may be told to avoid all forms of caffeine for 24 hours before the test. This includes coffee, tea (even decaffeinated tea), caffeinated sodas, chocolate, cocoa, and certain pain medicines. ??? Ask your health care provider about: ? Taking xeto-xpk-arguyip medicines, vitamins, herbs, and supplements. ? Changing or stopping your regular medicines. This is especially important if you are taking diabetes medicines or beta-tylor medicines. ? If you have diabetes, ask how you are to take your insulin or pills. It is common to adjust your insulin dose the morning of the test. ? If you are taking beta-tylor medicines, it is important to talk to your health care provider about these medicines well before the date of your test. Taking beta-tylor medicines may interfere with the test. In some cases, these medicines may need to be changed or stopped 24 hours or more before the test. ? If you wear a nitroglycerin patch, it may need to be removed prior to the test. Ask your health care provider if the patch should be removed before the test. ??? If you use an inhaler for any breathing condition, bring it with you to the test. ??? Do not apply lotions, powders, creams, or oils on your chest prior to the test. ??? Wear loose-fitting clothes and comfortable walking shoes. ??? Do not use any products that contain nicotine or tobacco, such as cigarettes and e-cigarettes, for 4 hours before the test or as told by your health care provider. If you need help quitting, ask your health care provider. What happens during the procedure? Multiple electrodes will be attached to your chest. ??? Multiple wires will be attached to the electrodes. These will transfer the electrical impulses from your heart to the ECG machine. Your heart will be monitored both at rest and while exercising. ??? If you are also having an echocardiogram or nuclear scanning, images of your heart will be taken before and after you exercise. ??? A blood pressure cuff will be placed around your arm to measure your blood pressure throughout the test. You will feel it tighten and loosen throughout the test. ??? You will walk on a treadmill or use a stationary bike. If you cannot use these, you may be asked to turn a crank with your hands. ??? You will start at a slow pace or level on the exercise machine. The exercise difficulty will be slowly increased to raise your heart rate. In the case of a treadmill, the speed and incline will gradually be increased. ??? You may be asked to periodically breathe into a tube. This measures the gases you breathe out. ??? You will be asked how you are feeling throughout the test. You will be asked to rate your level of exertion. ??? Tell the staff right away if you feel: ? Chest pain. ? Dizziness. ? Shortness of breath. ? Too fatigued to continue. ? Pain or aching in your legs or arms. ??? You will exercise until you have symptoms or until you reach a target heart rate. The test will also be stopped if you have changes in your blood pressure or ECG readings, or if you develop an irregular heartbeat (arrhythmia). The procedure may vary among health care providers and hospitals. What happens after the procedure? You will sit down and recover from the exercise. Your blood pressure, heart rate, and ECG will be monitored until you recover. ??? You may return to your normal schedule, including diet, activities, and medicines, unless your health care provider tells you otherwise. ??? It is up to you to get your test results. Ask your health care provider, or the department that is doing the test, when your results will be ready. Summary ??? An exercise stress test is a test that is done to collect information about how your heart functions during exercise. ??? This test is done to look for coronary artery disease (CAD). ??? During this test, you will walk on a treadmill or use an exercise bike to raise your heart rate. ??? It is important to follow instructions from your health care provider about eating and drinking restrictions before the test. This may include avoiding caffeine and certain medicines before the test. This information is not intended to replace advice given to you by your health care provider. Make sure you discuss any questions you have with your health care provider. Document Revised: 10/27/2020 Document Reviewed: 10/27/2020 [employer] Patient Education ?? 2021 [employer] Emergency Awareness and Preventative Care STROKE is an EMERGENCY Every Minute Counts Act FAST and Check for these signs: FACE Does the face look uneven? ARM Does one arm drift down? SPEECH Does their speech sound strange? TIME Call at any sign of stroke Stroke Risk Factors Atrial Fibrillation (irregular heartbeat) Diabetes Family history of stroke Heart Disease Heavy alcohol use High Blood Pressure High Cholesterol Physical inactivity and obesity Smoking Cigarette Smoking The facts are clear, cigarette smoking will shorten your life. Smoking can cause many illnesses along the way. As a healthcare provider, we recommend that you stop smoking. Assistance with quitting is available by contacting 1-642-BUDH-NOW. This is a free resource providing counseling, support, and referral. Or you may contact your personal physician. National Suicide Prevention Lifeline: The National Suicide Prevention Lifeline is a national network of local crisis centers that provides free and confidential emotional support to people in suicidal crisis or emotional distress 24 hours a day, 7 days a week. Don't Wait! Stop a Heart Attack Before it Starts What is a heart attack? A heart attack is damage or to a part of the heart from severely decreased or lack of blood flow to the heart. Over time, arteries can become narrow from the buildup of fat and cholesterol, which is called plaque. The plaque can rupture causing a blood clot to form. When the blood clot forms, the artery can become severely narrowed or completely blocked, causing a heart attack. Heart attack is the leading cause of in the [place]. 85% of muscle damage occurs within the first 2 hours. Delay in the recognition of heart attack symptoms increases the chances of . Know the early symptoms of a heart attack: Nausea Feeling of fullness in chest Jaw Pain Pain that travels down one or both arms Fatigue/being tired Anxiety Back Pain Chest pressure, squeezing, or discomfort Shortness of breath Sweating, or a cold sweat Feeling of impending doom There are unusual signs of a heart attack, too! Women, the elderly, and diabetics may present with atypical symptoms: Fainting/dizziness Weakness Confusion Risk Factors for a Heart Attack Some heart disease risk factors, such as age and family history, cannot be changed. Others, like smoking and lack of exercise, can be changed. Smoking High Cholesterol High Blood Pressure Family History Obesity Age Gender (Males are at higher risk) Lack of Exercise Diabetes Diet Stress Excessive Alcohol Intake If you or someone you know is experiencing the signs and symptoms of a heart attack, DON???T DELAY. Call immediately and seek help. If someone collapses, perform CPR! Do not attempt to drive if you are having symptoms of heart attack. Hands-Only CPR Why Hands-Only CPR? Hands-Only CPR has been shown to be as effective as conventional CPR for cardiac arrests that occur outside of a hospital. Survival depends on immediately receiving CPR from someone nearby. How do you perform Hands-Only CPR? There are two easy steps: Call if you see a teen or adult collapse Push hard and fast in the center of the chest at a beat of 100 beats per minute. Save a life! 4 WAYS TO GET AHEAD OF SEPSIS SEPSIS is a MEDICAL EMERGENCY. Time matters! Infections put you and your family at risk for a life-threatening condition called sepsis. Sepsis is the body's extreme response to an infection. It is life-threatening, and without timely treatment, sepsis can rapidly lead to tissue damage, organ failure, and . Sepsis happens when an infection you already have-in your skin, lungs, urinary tract or somewhere else-triggers a chain reaction throughout your body. 1 PREVENT INFECTIONS Take good care of chronic conditions. Talk to your doctor about getting the recommended vaccines. 2 PRACTICE GOOD HYGIENE Wash your hands frequently. Keep cuts or open sores clean and covered until they are healed. 3 KNOW THE SYMPTOMS Confusion or disorientation Shortness of breath High heart rate Fever, shivering, or feeling very cold Extreme pain or discomfort Clammy or sweaty skin 4 ACT FAST Get medical care IMMEDIATELY if you suspect sepsis or if you have an infection that is not getting better or is getting worse. To learn more about sepsis and how to prevent infections, visit www.cdc.gov/sepsis. Test Results Laboratory or Other Results This Visit (last charted value for your 10/22/2021 visit) No Laboratory or Other Results This Visit Patient Name:HAMLINTARAH Gunjan I have received and understand this information and was given the opportunity to ask questions. Patient/Ship'S Captain Name: Patient/Ship'S Captain Signature: Relationship to Patient: Clinician/Hospital Ship'S Captain Signature: Date: Electronically signed by Interface, [facility] Conversion Feed Research Technician Cerner at 06/28/2022 10:42 AM CDT documented in this encounter Plan of Treatment Not on file documented as of this encounter Visit Diagnoses Not on filedocumented in this encounter Care Teams Superintendent Service Relationship Specialty Start Date End Date Britni Fletcher, TAYLOR [address] [address] PCP - General Family Medicine 07/01/22 03/17/23 Nadia Shin APRN [address] [place] [address] PCP - General Nurse Practitioner 03/18/23 documented as of this encounter
--- OUTSIDE RECORDS SUMMARY | 2024-08-13 15:08 | XMS_ITS | Encounter Summary ---
Author Organization [facility] Address [address] [place] [address] Care Team Providers Care Butcher All Round Name Role Phone Britni Fletcher APRN Primary Care Provi emperatriz Nadia Sam APRN Primary Care Provider + Encounter Details Date Type Department Care Team (Late st Contact Info) Description 10/22/2021 Transcribed Document [facility] [place] [address] [place] [address] ProviderRodri MD [address] [place] [address] Social History Tobacco Use Types Packs/Day Years Used Date Smoking Tobacco: Never Assessed Sex and Gender Information Value Date Recorded Sex Assigned at Not on file Legal Sex Male 5:37 PM CDT Gender Identity Not on file Sexual Orientation Not on file documented as of this encounter Miscellaneous Notes * Cerner Conversion Note - Rodri ProviderMD - 10/22/2021 10:46 AM CDT Stroke/Warfarin Instructions Entered On: 10/22/2021 10:46 EDT Performed On: 10/22/2021 10:46 EDT by AMANDA CARDOZA, RN Stroke/Warfarin Instructions Stroke/TIA Discharge Ins : N/A Warfarin Discharge Ins : N/A AMANDA CARDOZA RN - 10/22/2021 10:46 EDT Electronically signed by Giovanni Mckinney Conversion Building Energy Consultant Cerner at 06/28/2022 10:48 AM CDT documented in this encounter Plan of Treatment Not on file documented as of this encounter Visit Diagnoses Not on filedocumented in this encounter Care Teams Butcher All Round Relationship Specialty Start Date End Date Alisson Fletcherfer N, AUTOMOBILE SALESMAN [address] [facility] [address] [place] [address] PCP - General Family Medicine 07/01/22 03/17/23 Nadia Sam, AUTOMOBILE SALESMAN [address] [place] [address] PCP - General Nurse Practitioner 03/18/23 documented as of this encounter
--- OUTSIDE RECORDS SUMMARY | 2024-08-13 15:09 | XMS_ITS | Encounter Summary ---
Author Organization [facility] [employer] [facility] Address [address] [place] [address] Care Team Providers Care Sr Technical Sales Consultant Name Role Phone Britni Fletcher APRN Primary Care Provi emperatriz Nadia Sam APRN Primary Care Provider + Encounter Details Date Type Department Care Team (Late st Contact Info) Description 11/05/2021 Transcribed Document [facility] [place] Family Medicine [address] [place] [address] ProviderRodri MD [address] [place] [address] Social History Tobacco Use Types Packs/Day Years Used Date Smoking Tobacco: Never Assessed Sex and Gender Information Value Date Recorded Sex Assigned at Not on file Legal Sex Male 5:37 PM CDT Gender Identity Not on file Sexual Orientation Not on file documented as of this encounter Miscellaneous Notes * Cerner Conversion Note - Rodri ProviderMD - 11/05/2021 9:40 AM CDT Pre Procedure Adult Entered On: 11/05/2021 9:45 EDT Performed On: 11/05/2021 9:40 EDT by Teetee Brewster RN Height and Weight, Clinical Dosing Height Source : Stated Height Entry Format : [place] Height, Feet : 5 ft(Converted to: 152 cm, 60 Inch) Height, Inches : 9 Inch(Converted to: 0 ft 9 Inch, 22.86 cm) Clinical Height : 175.26 cm Weight Source : Standing scale Weight Entry Format : [place] Clinical Dosing Weight : 85 kg Weight, Pounds : 187 lb Body Surface Area (BSA) : 2.01 m2 Body Mass Index : 27.7 kg/m2 (HI) [place] Body Weight : 70 kg Teetee Brewster RN - 11/05/2021 9:40 EDT Health Histories Smoking Status : Former smoker, quit more than 30 days ago Smokeless Tobacco Status : Smokeless tobacco user within last 30 days Desires Tobacco Cessation Medication : No Reason for No Tobacco Cessation Medication : Refuses FDA approved medications Teetee Brewster RN - 11/05/2021 9:40 EDT Social History (As Of: 11/05/2021 09:45:31 EDT) Tobacco: Smokeless tobacco user within last 30 days Smokeless Tobacco Status. (Last Updated: 10/22/2021 10:45:08 EDT by AMANDA CARDOZA, RN) Alcohol: Alcohol Use History No. (Last Updated: 11/05/2021 09:40:39 EDT by Teetee Brewster RN) Substance Abuse: Drug Use Hx: No. Use in Last 12 Months: No. (Last Updated: 11/05/2021 09:40:48 EDT by Teetee Brewster RN) Infectious Disease History Does patient have symptoms of COVID-19? : No Tested for COVID19 in the past 14 days : No, Patient stated Does the Patient state known exposure to a COVID-19 positive case in the last 14 days? : No Patient Vaccinated for COVID-19 : Not vaccinated Does Patient want a COVID-19 Vaccine? : No Teetee Brewster RN - 11/05/2021 9:40 EDT Infectious Disease Risk Screening Grid Cough < 2 wks of unknown origin : NO Cough > 2 weeks : NO Blood in Sputum : NO Fever or self-reported Fever : NO Rash of unknown origin : NO Headache : NO Stiff neck : NO Night Sweats : NO Unexplained Weight Loss : NO Diarrhea (3 episode per day) : NO Teetee Brewster RN - 11/05/2021 9:40 EDT Physical contact outside [place] in the last 30 days : No Hospitalized in Foreign Country : No Infectious Disease History : Chicken pox/Shingles INF Disease TB Screening Calc : 0 INF Disease Recent Travel Calc : 0 Teetee Brewster RN - 11/05/2021 9:40 EDT COVID19 PreProcedure Screening Is this an Emergent or Add on Procedure? : No Date PreProcedure COVID-19 test known? : No Has patient been isolated since the test : No Exposed to COVID19 symptoms since test? : No Teetee Brewster RN - 11/05/2021 9:40 EDT Anesthesia/Transfusion History Family History of Anesthesia Reaction : No prior transfusion(s) Transfusion History : No prior anesthesia Family History of Anesthesia Reaction : None Teetee Brewster RN - 11/05/2021 9:40 EDT Functional Assessment Living Situation : Home Patient Lives With : Spouse Current Home Treatments : None Teetee Brewster RN - 11/05/2021 9:40 EDT Cisco Suicide Severity Rating Scale (C-SSRS) CSSRS Past Month Wish to be : No CSSRS Past Month Suicidal Thoughts : No CSSRS Lifetime Suicide Behavior : No Suicide Severity Rating Score : 0 Suicide Severity Rating : No Additional Care Required at this time Teetee Brewster RN - 11/05/2021 9:40 EDT Psychosocial History Do You Have a History of the Following? : Patient denies history Currently in Unsafe Situation : No Teetee Brewster RN - 11/05/2021 9:40 EDT Advance Directive Patient has Advance Directive *Q : No, patient refuses Advance Directive information Teetee Brewster RN - 11/05/2021 9:40 EDT Teaching/Learning Assessment Barriers To Learning : None evident Individuals Taught : Patient, Spouse Teetee Brewster RN - 11/05/2021 9:40 EDT Education Topics, Periop Preadmission Perioperative Education Grid Arrival Time/Place : Verbalizes understanding Falls : Verbalizes understanding Infection Control : Verbalizes understanding IV's : Verbalizes understanding NPO Status/Directions : Verbalizes understanding Pain Management : Verbalizes understanding Postoperative Care Preparations : Verbalizes understanding Preprocedure Preparations : Verbalizes understanding Preprocedure Tests/Labs : Verbalizes understanding Responsible Adult : Verbalizes understanding Teetee Brewster RN - 11/05/2021 9:40 EDT General Info Support Person/Pt Rep Name : Paola stringer Support Person/Pt Rep Contact Information : [phone] Want Family/Rep/Phys Notified of Admit : No Emergency Contact #1 : . Emergency Contact #1 Phone Number : . Emergency Contact #1 Relationship : . Emergency Contact #2 : . Emergency Contact #2 Phone Number : . Emergency Contact #2 Relationship : . Primary Language : Faroese Communication Barrier : None Wildlife Technician Needed : No Teetee Brewster RN - 11/05/2021 9:40 EDT Sleep Apnea Risk Assmt Hx of Obstructive Sleep Apnea Diagnosis : No Snore Loudly : No Tired, Fatigued, or Sleepy During Day : No Observed Stopping Breathing During Sleep : No Have/Are Being Treated for Hypertension : Yes BMI Greater Than 35 kg/m2 : No Age over 50 Years Old : No Neck Circumference Greater Than 40 cm : No Gender Male : Yes STOP-BANG Sleep Apnea Risk Level Score : 2 Teetee Brewster RN - 11/05/2021 9:40 EDT Frandy Scale Frandy Sensory Perception : No impairment Frandy Moisture : Rarely moist Frandy Activity : Walks frequently Frandy Mobility : No limitation Frandy Nutrition : Adequate Frandy Friction and Shear : No apparent problem Frandy Score : 22 Teetee Brewster RN - 11/05/2021 9:40 EDT Pain Assessment Pain Assessment : Initial assessment Pain Scale Used : 0-10 Scale Teetee Brewster RN - 11/05/2021 9:40 EDT Fall Risk Scales ABCs Fall Injury Risk Identification : None GRIMES Hx Falls Immediate/Within 3 Months : No Grimes Secondary Diagnosis : Yes GRIMES Use of Ambulatory Aid : None GRIMES IV Therapy or IV Access : Yes Grimes Gait/Transferring : Normal, bedrest, immobile Grimes Mental Status : Oriented to own ability Grimes Fall Risk Score : 35 GRIMES Fall Scale Risk Level : 25-45 Medium Risk [place] Fall Interventions : Adequate lighting, Assistive devices within reach, Bed in low position, Call device within reach, Personal items within reach, Reinforced to call for assistance before getting out of bed, Room free of clutter/spills Teetee Brewster RN - 11/05/2021 9:40 EDT Valuables and Belongings Valuables and Belongings : Clothing Clothing : Common streetwear Clothing Disposition : Bedside, With family, Declines to send to security/safe Teetee Brewster RN - 11/05/2021 9:40 EDT Pain Scale Intensity : 0 Teetee Brewster RN - 11/05/2021 9:40 EDT Image 4 - Images currently included in the form version of this document have not been included in the text rendition version of the form. documented in this encounter Plan of Treatment Not on file documented as of this encounter Visit Diagnoses Not on filedocumented in this encounter Care Teams Sr Technical Sales Consultant Relationship Specialty Start Date End Date Britni Fletcher, AIRPLANE PILOT SUPERVISOR [address] [facility] [address] [place] [address] PCP - General Family Medicine 07/01/22 03/17/23 Nadia Sam, AIRPLANE PILOT SUPERVISOR [address] [place] [address] PCP - General Nurse Practitioner 03/18/23 documented as of this encounter
--- OUTSIDE RECORDS SUMMARY | 2024-08-13 15:09 | XMS_ITS | Encounter Summary ---
Author Organization [facility] [employer] [facility] Address [address] [place] [address] Care Team Providers Care Shredder Tender Peat Name Role Phone Britni Fletcher APRN Primary Care Provi emperatriz Nadia Sam APRN Primary Care Provider + Encounter Details Date Type Department Care Team (Late st Contact Info) Description 11/05/2021 Transcribed Document [facility] [place] Family Medicine [address] [place] [address] ProviderRodri MD [address] [place] [address] Social History Tobacco Use Types Packs/Day Years Used Date Smoking Tobacco: Never Assessed Sex and Gender Information Value Date Recorded Sex Assigned at Not on file Legal Sex Male 5:37 PM CDT Gender Identity Not on file Sexual Orientation Not on file documented as of this encounter Miscellaneous Notes * Cerner Conversion Note - Rodri ProviderMD - 11/05/2021 12:04 PM CDT Nursing Discharge Summary Entered On: 11/05/2021 12:05 EDT Performed On: 11/05/2021 12:04 EDT by Teetee Brewster RN Discharge Documentation Discharge Date/Time : 11/05/2021 14:00 EDT Transporter Signature : Teetee Brewster, Teetee Jerry, CELY - 11/05/2021 13:49 EDT Patient Disposition, General : Discharge Discharge To : Home with ambulatory/outpatient follow-up Mode Of Departure, General Discharge : Private vehicle Accompanied By, Discharge : Mother, Spouse IV Discontinued : Yes Personal Belongings With Patient : Yes Discharge Instructions Reviewed With, Opportunity For Questions Given : Patient, Mother, Spouse Patient Education Completed : Yes Teaching Method : Explanation, Printed materials Teaching Evaluation : Returns demonstration, Verbalizes understanding Teetee Brewster RN - 11/05/2021 12:04 EDT Electronically signed by Hank [facility] Conversion [employer] Cerner at 06/28/2022 11:02 AM CDT documented in this encounter Plan of Treatment Not on file documented as of this encounter Visit Diagnoses Not on filedocumented in this encounter Care Teams Shredder Tender Peat Relationship Specialty Start Date End Date Britni Fletcher, CALL WORKER PERSON [address] [phone] PCP - General Family Medicine 07/01/22 03/17/23 Nadia Sam, CALL WORKER PERSON [address] [place] [address] PCP - General Nurse Practitioner 03/18/23 documented as of this encounter
--- OUTSIDE RECORDS SUMMARY | 2024-08-13 15:09 | XMS_ITS | Encounter Summary ---
Author Organization [facility] [employer] Address [address] [place] [address] Care Team Providers Care Cyber Special Agent Name Role Phone Britni Fletcher APRN Primary Care Provi emperatriz Nadia Sam APRN Primary Care Provider + Encounter Details Date Type Department Care Team (Late st Contact Info) Description 10/22/2021 Transcribed Document [facility] [place] [address] [place] [address] ProviderRodri MD [address] [place] [address] Social History Tobacco Use Types Packs/Day Years Used Date Smoking Tobacco: Never Assessed Sex and Gender Information Value Date Recorded Sex Assigned at Not on file Legal Sex Male 5:37 PM CDT Gender Identity Not on file Sexual Orientation Not on file documented as of this encounter Miscellaneous Notes * Cerner Conversion Note - Rodri Vitale MD - 10/22/2021 10:44 AM CDT Outpatient Visit History Entered On: 10/22/2021 10:46 EDT Performed On: 10/22/2021 10:44 EDT by AMANDA CARDOZA RN Vital Measurements Temperature Source : Temporal artery scanning Temperature Mode : Fahrenheit Temperature, Fahrenheit : 97.5 Deg F Clinical Temperature, C : 36.4 Deg C Peripheral Pulse Rate : 52 bpm (LOW) Respiratory Rate : 16 Breaths/Min Blood Pressure Location : Arm, right upper Blood Pressure Source : Non-Invasive BP Device Systolic Blood Pressure : 138 mmHg Diastolic Blood Pressure : 94 mmHg (HI) Oxygen Saturation : 98 % Oxygen Therapy Mode : Room air AMANDA ACRDOZA RN - 10/22/2021 10:44 EDT Height and Weight, Clinical Dosing Height Source : Measured Height Entry Format : [place] Height, Feet : 5 ft(Converted to: 152 cm, 60 Inch) Height, Inches : 9 Inch(Converted to: 0 ft 9 Inch, 22.86 cm) Clinical Height : 175.26 cm Weight Source : Standing scale Weight Entry Format : [place] Clinical Dosing Weight : 85 kg Weight, Pounds : 187 lb Body Surface Area (BSA) : 2.01 m2 Body Mass Index : 27.7 kg/m2 (HI) [place] Body Weight : 70 kg AMANDA CARDOZA RN - 10/22/2021 10:44 EDT Quick Look Assessment Level of Consciousness : Alert, Awake Affect/Behavior : Appropriate, Calm, Cooperative Orientation : Oriented x 4 Skin Temperature : Warm Skin Description : Normal for ethnicity AMANDA CARDOZA RN - 10/22/2021 10:44 EDT Health Histories Smoking Status : Never (less than 100 in lifetime; none in last 30 days) Smokeless Tobacco Status : Smokeless tobacco user within last 30 days Desires Tobacco Cessation Medication : No Reason for No Tobacco Cessation Medication : ED/procedural patient only AMANDA CARDOZA RN - 10/22/2021 10:44 EDT Social History (As Of: 10/22/2021 10:46:07 EDT) Tobacco: Smokeless tobacco user within last 30 days Smokeless Tobacco Status. (Last Updated: 10/22/2021 10:45:08 EDT by AMANDA CARDOZA RN) Infectious Disease History Does patient have symptoms of COVID-19? : No Tested for COVID19 in the past 14 days : No, Patient stated Does the Patient state known exposure to a COVID-19 positive case in the last 14 days? : No Patient Vaccinated for COVID-19 : Not vaccinated Does Patient want a COVID-19 Vaccine? : No AMANDA CARDOZA RN - 10/22/2021 10:44 EDT Infectious Disease Risk Screening Grid Cough < 2 wks of unknown origin : NO Cough > 2 weeks : NO Blood in Sputum : NO Fever or self-reported Fever : NO Rash of unknown origin : NO Headache : NO Stiff neck : NO Night Sweats : NO Unexplained Weight Loss : NO Diarrhea (3 episode per day) : NO AMANDA CARDOZA RN - 10/22/2021 10:44 EDT Physical contact outside [place] in the last 30 days : No Hospitalized in Foreign Country : No Infectious Disease History : None INF Disease TB Screening Calc : 0 INF Disease Recent Travel Calc : 0 AMANDA CARDOZA RN - 10/22/2021 10:44 EDT COVID19 PreProcedure Screening Is this an Emergent or Add on Procedure? : Yes AMANDA CARDOZA RN - 10/22/2021 10:44 EDT Advance Directive Patient has Advance Directive *Q : No, patient refuses Advance Directive information AMANDA CARDOZA RN - 10/22/2021 10:44 EDT [place] Suicide Severity Rating Scale (C-SSRS) CSSRS Past Month Wish to be : No CSSRS Past Month Suicidal Thoughts : No CSSRS Lifetime Suicide Behavior : No Suicide Severity Rating Score : 0 Suicide Severity Rating : No Additional Care Required at this time AMANDA CARDOZA RN - 10/22/2021 10:44 EDT Psychosocial History Do You Have a History of the Following? : Patient denies history Currently in Unsafe Situation : No AMANDA CARDOZA RN - 10/22/2021 10:44 EDT Fall Risk Scales ABCs Fall Injury Risk Identification : None GRIMES Hx Falls Immediate/Within 3 Months : No Grimes Secondary Diagnosis : Yes GRIMES Use of Ambulatory Aid : None GRIMES IV Therapy or IV Access : No Grimes Gait/Transferring : Normal, bedrest, immobile Grimes Mental Status : Oriented to own ability [place] Fall Risk Score : 15 GRIMES Fall Scale Risk Level : 0-24 Low Risk [place] Fall Interventions : Adequate lighting, Call device within reach, Fall prevention handout/education per facility policy, Frequent orientation to call device AMANDA CARDOZA RN - 10/22/2021 10:44 EDT Pain Assessment Pain Assessment : Initial assessment Intensity : 0 AMANDA CARDOZA RN - 10/22/2021 10:44 EDT documented in this encounter Plan of Treatment Not on file documented as of this encounter Visit Diagnoses Not on filedocumented in this encounter Care Teams Cyber Special Agent Relationship Specialty Start Date End Date Britni Fletcher, CNS [address] [phone] PCP - General Family Medicine 07/01/22 03/17/23 Nadia Sam, CNS [address] [place] [phone] PCP - General Nurse Practitioner 03/18/23 documented as of this encounter
--- OUTSIDE RECORDS SUMMARY | 2024-08-13 15:09 | XMS_ITS | Encounter Summary ---
Author Organization [facility] [employer] [facility] Address [address] [place] [address] Care Team Providers Care Top Lift Cutter Name Role Phone Britni Fletcher APRN Primary Care Provi emperatriz Nadia Sam APRN Primary Care Provider + Encounter Details Date Type Department Care Team (Late st Contact Info) Description 10/23/2021 Transcribed Document [facility] [place] [address] [place] [address] ProviderRodri MD [address] [place] [address] Social History Tobacco Use Types Packs/Day Years Used Date Smoking Tobacco: Never Assessed Sex and Gender Information Value Date Recorded Sex Assigned at Not on file Legal Sex Male 5:37 PM CDT Gender Identity Not on file Sexual Orientation Not on file documented as of this encounter Miscellaneous Notes * Cerner Conversion Note - Rodri Vitale MD - 10/23/2021 11:51 AM CDT DATE OF SERVICE: 10/22/2021 STANDARD GXT TOLERANCE TEST INDICATIONS: Chest pain, hyperlipidemia, hypertension, shortness of breath. TECHNIQUE: After informed consent, the patient walked 9 minutes and 35 seconds on a standard Nolan protocol, stopping due to chest pain. Heart rate went from 50 to 153 surpassing target heart rate of 149 beats per minute. Blood pressure went from 132/92 to 156/103. Baseline EKG shows sinus rhythm. Peak exercise EKG shows sinus tachycardia. No ischemic ST-T wave changes or arrhythmia induced. Max peak exertion EKG showed ST depression up to [address] depression in inferolateral leads. In recovery, the ST changes persisted until 4 minutes into recovery, heart rate recovery time was 1 minute. Workload achieved was 11 METs. IMPRESSION: Abnormal GXT tolerance test. The patient did have EKG changes in inferolateral leads with exertion, persisted 4 minutes into recovery up to [address] depression. Will need further cardiac risk stratification. /[id number] Rowena Sosa MD SMB[place]any/AQ / SMB[place] / MODL /[id number] documented in this encounter Plan of Treatment Not on file documented as of this encounter Visit Diagnoses Not on filedocumented in this encounter Care Teams Top Lift Cutter Relationship Specialty Start Date End Date Britni Fletcher APRN [address] [phone] PCP - General Family Medicine 07/01/22 03/17/23 Nadia Sam APRN [address] [place] [address] PCP - General Nurse Practitioner 03/18/23 documented as of this encounter
--- OUTSIDE RECORDS SUMMARY | 2024-08-13 15:09 | XMS_ITS | Encounter Summary ---
Author Organization [facility] Address [address] [place] [address] Care Team Providers Care Tank Bottom Assembler Name Role Phone Britni Fletcher APRN Primary Care Provi emperatriz Nadia Sam APRN Primary Care Provider + Encounter Details Date Type Department Care Team (Late st Contact Info) Description 11/05/2021 Transcribed Document [facility] [place] [address] [place] [address] ProviderRodri MD [address] [place] [address] Social History Tobacco Use Types Packs/Day Years Used Date Smoking Tobacco: Never Assessed Sex and Gender Information Value Date Recorded Sex Assigned at Not on file Legal Sex Male 5:37 PM CDT Gender Identity Not on file Sexual Orientation Not on file documented as of this encounter Miscellaneous Notes * Cerner Conversion Note - Rodri Vitale MD - 11/05/2021 11:23 AM CDT DATE OF SERVICE: 11/05/2021 LEFT HEART CATHETERIZATION REPORT INDICATION: Recurrent chest pain with exertional component, high risk abnormal exercise stress test. ADDITIONAL REFERRING PHYSICIAN: Dr. Nadia Sam. PROCEDURE: Standard left heart catheterization. TECHNIQUE: A 5/6-Maori sheath was placed in the right radial artery. Jaspreet catheter was used for selective angiography of the right coronary artery and obtaining pressures in the left ventricle. JL3.5 diagnostic catheter was used for selective angiography of the left coronary artery system. Following the diagnostic catheterization, the radial artery sheath was removed and the access site successfully compressed using a TR band. The patient received 300 mcg of nitroglycerin and 50 units/kg of heparin via the right radial artery sheath. He received moderate conscious sedation for the procedure including intravenous Versed and fentanyl. He was monitored by me for more than 30 minutes and remained stable hemodynamically without respiratory distress. HEMODYNAMICS: Left ventricle 90/5 mmHg, aorta 90/65 mmHg. DIAGNOSES: 1. Mild coronary artery atherosclerosis. 2. Normal left ventricular filling pressure without gradient across the aortic valve. CORONARY ANATOMY: 1. Left main trunk: Angiographically normal. 2. LAD: A large caliber vessel, which gives rise to a large caliber bifurcating first diagonal branch, additional small caliber diagonal branches before extending beyond the apex. Luminal irregularities present in the LAD and diagonal branches. 3. Circumflex artery: Small caliber vessel, which gives rise to a tiny high lateral branch, tiny lateral branch, and a tiny posterolateral branch. Luminal irregularities present 4. Right coronary artery: Dominant vessel. Moderate caliber vessel, which gives rise to a small caliber posterior descending artery, small caliber posterolateral branch. Luminal irregularities present in the right coronary artery. 5. Left ventricle: Normal left ventricular filling pressure without gradient across the aortic valve. IMPRESSION: Angiographically, the patient has mild coronary artery atherosclerosis. There is no indication for revascularization. RECOMMENDATIONS: Risk factor modification. Medical management is recommended. /[id number] Guevara East MD SSL/AQ / SSL / MODL /[id number] CC: Dr. Nilda Sam documented in this encounter Plan of Treatment Not on file documented as of this encounter Visit Diagnoses Not on filedocumented in this encounter Care Teams Tank Bottom Assembler Relationship Specialty Start Date End Date Britni Fletcher, CHAIRMAN AND CEO [address] [phone] PCP - General Family Medicine 07/01/22 03/17/23 Nadia Sam, CHAIRMAN AND CEO [address] [place] [phone] PCP - General Nurse Practitioner 03/18/23 documented as of this encounter
--- OUTSIDE RECORDS SUMMARY | 2024-08-13 15:09 | XMS_ITS | Encounter Summary ---
Author Organization [facility] Address [address] [place] [address] Care Team Providers Care Adoption Services Manager Name Role Phone Nadia Sam APRN Primary Care Provider + Reason for Referral * Diagnostic X-Ray (Routine) - Closed Specialty Diagnoses / Procedures Referred By Radha t Referred To Contact Diagnoses Abdominal pain, generalized Procedures XR KUB PORTABLE Nadia Sam APRN [address] [place] [address] Phone: tel: fax: Referral ID Status Reason Start Date Expiration Date Visits Re quested Visits Authorized [id number] Closed 03/18/2023 09/14/2023 1 1 Encounter Details Date Type Department Care Team (Late st Contact Info) Description 03/18/2023 Outside Orders [facility] Admitting [address] [place] [address] Nadia Sam APRN [address] [place] [address] Abdominal pain, generalized (Primary Dx) Social History Tobacco Use Types Packs/Day Years Used Date Smoking Tobacco: Never Smokeless Tobacco: Former Chew Alcohol Use Standard Drinks/Week Comments Never 0 (1 standard drink = 0.6 oz pur e alcohol) Interpersonal Safety Answer Date Record ed Family or friends hurt you Not on file 03/18 Family or friends insult you Not on file 11/2023 Family or friends threaten you Not on file 0 03/18/2023 Family or friends scream or curse at you Not on file 03/18/2023 Housing Stability Answer Date Recorded Living situation today Not on file Living situation problems Not on file 2023 Food Insecurity Answer Date Recorded Food run out past 12 months Not on file 11/2023 Food did not last past 12 months Not on file 03/18/2023 Employment Answer Date Recorded Help finding and keeping a job Not on file 0 03/18/2023 Family and Community Support Answer Marcellus e Recorded Help with Day to Day Activities Not on file 03/18/2023 Feeling Lonely or Isolated Not on file 03/18 Educational Attainment Answer Date Jhony rded Speak language other than Polish at home Not on file 03/18/2023 Want help with school or training Not on file 03/18/2023 Depression Answer Date Recorded PHQ-2 Risk Not on file 03/18/2023 Disabilities Answer Date Recorded Difficulty concentrating Not on file 024 Difficulty doing errands alone Not on file 0 03/18/2023 Substance Use Answer Date Recorded Used prescription meds for non-medical reasons N ot on file 03/18/2023 Used illegal drugs past 12 months Not on file 03/18/2023 Sex and Gender Information Value Date Recorded Sex Assigned at Not on file Legal Sex Male 5:37 PM CDT Gender Identity Not on file Sexual Orientation Not on file documented as of this encounter Plan of Treatment Not on file documented as of this encounter Results * XR KUB PORTABLE (03/18/2023 2:54 PM EST) Anatomical Region Laterality Modality Abdomen X-Ray 03/19/2023 9:04 AM EST Impressions 03/19/2023 9:42 AM EST Nonspecific but nonobstructive bowel gas pattern with moderate stool. Images reviewed, interpreted, and dictated by Chelsey Dupree MD Narrative 03/19/2023 9:42 AM EST KUB INDICATION: Left flank pain. COMPARISON: None. FINDINGS: A supine view of the abdomen was obtained. The bowel gas pattern is nonspecific but nonobstructive with moderate stool. There are no pathologic calcifications. No acute osseous abnormality. Procedure Note Chelsey Dupree MD - 03/19/2023 KUB INDICATION: Left flank pain. COMPARISON: None. FINDINGS: A supine view of the abdomen was obtained. The bowel gas pattern is nonspecific but nonobstructive with moderate stool. There are no pathologic calcifications. No acute osseous abnormality. IMPRESSION: Nonspecific but nonobstructive bowel gas pattern with moderate stool. Images reviewed, interpreted, and dictated by Chelsey Dupree MD Nadia Sam APRN IMG DIAGNOSTIC IMAGING O RDERABLES Final Result documented in this encounter Visit Diagnoses Diagnosis Abdominal pain, generalized- Primary Abdominal pain, generalized documented in this encounter Care Teams Adoption Services Manager Relationship Specialty Start Date End Date Nadia Sam APRN [address] [place] [phone] PCP - General Nurse Practitioner 03/18/23 documented as of this encounter
--- OUTSIDE RECORDS SUMMARY | 2024-08-13 15:09 | XMS_ITS | Clinical Summary ---
Author Organization [facility] Address [address] [place] [address] Care Team Providers Care Lead Ramp Service Man Name Role Phone Nadia Sam TAYLOR Primary Care Provider + Allergies No known active allergies Medications methadone (DOLOPHINE) 10 MG tablet 55 mg, QAM, 0 Refill(s) 10/22/2021 Active aspirin 81 MG EC tablet Take 1 tablet (81 mg total) by mouth daily. Active omeprazole (PriLOSEC) 40 MG capsule Take 1 capsule (40 mg total) by mouth Daily (0600). Active ondansetron (ZOFRAN) 4 MG tablet Take 1 tablet (4 mg total) by mouth every 6 (six) hours as needed for nausea or vomiting. Active polyethylene glycol (GLYCOLAX) 17 gram packet Take 17 g by mouth daily. Active verapamiL SR (CALAN-SR) 120 MG ER tablet Take 1 tablet (120 mg total) by mouth daily. Active Active Problems Problem Noted Date Diagnosed Date Hyperlipidemia 12/15/2023 Hypercholesteremia 12/15/2023 Hypertension 12/15/2023 Dizziness 12/15/2023 Dyspnea 12/15/2023 Palpitations 12/15/2023 Low back pain 12/15/2023 GERD (gastroesophageal reflux disease) Fatigue 12/15/2023 ED (erectile dysfunction) 12/15/2023 Rupture of anterior cruciate ligament of right knee, partial tear 07/01/2022 Family History Medical History Relation Name Comments Anxiety disorder Other Clotting disorder Other Heart attack Other Heart disease Other Hypertension Other Leukemia Other Lupus Other Relation Name Status Comments Other Social History Tobacco Use Types Packs/Day Years Used Date Smoking Tobacco: Never Smokeless Tobacco: Current Chew, Snuff Tobacco Cessation:Ready to Q uit: Not Asked; Counseling Given: Not Answered Alcohol Use Standard Drinks/Week Comments Yes 0 (1 standard drink = 0.6 oz pur e alcohol) occasional caffeine use Interpersonal Safety Answer Date Record ed Family [...] Date Jhony rded Speak language other than Slovenian at home Not on file 03/18/2023 Want [...] on file Sexual Orientation Not on file Last Filed Vital Signs Vital Sign Reading Time Taken Comments Blood Pressure 130/100 12/22/2023 8:46 AM EDT Pulse 61 12/22/2023 8:46 AM EDT Temperature - - Respiratory Rate 20 12/22/2023 8:46 AM EDT Oxygen Saturation 99% 12/22/2023 8:46 AM EDT Inhaled Oxygen Concentration - - Weight 93 kg (205 lb) 12/22/2023 8:46 AM EDT Height 175.3 cm (5' 9 ) 07/01/2022 10:32 AM EDT Body Mass Index 30.27 07/01/2022 10:32 AM EDT Plan of Treatment Health Maintenance Due Date Last Done Comments CT Colonography 1977 Colonoscopy 1977 Colorectal Cancer Screening 1977 FOBT/FIT 1977 Fit-DNA (Cologuard) 1977 Sigmoidoscopy 1977 Depression Screening (12+) 1989 Tobacco Cessation Counseling and Screening (12+) 1989 HIV Screening 1992 Hepatitis C Screening 1995 DTAP/TDAP/TD VACCINES (2 - T d or Tdap) 05/12/2006 05/12/1996 Lipid Panel 2012 COVID-19 VACCINE (2023-2 5 season) 2023 Influenza Vaccine (Season Ended) 2024 Pneumococcal Vaccine: 0-49 Years Aged Out No longer eligible based on patient's age to complete this topic Insurance Care Teams Lead Ramp Service Man Relationship Specialty Start Date End Date Nadia Sam, TAYLOR [address] [place] [address] PCP - General Nurse Practitioner 03/18/23
--- OUTSIDE RECORDS SUMMARY | 2024-08-13 15:09 | XMS_ITS | Referral Summary ---
Author Organization [facility] Address [address] [place] [address] Care Team Providers Care Gourmet Coffee Attendant Name Role Phone Nadia Sam TAYLOR Primary [...] ligament of right knee, partial tear 07/01/2022 Social History Tobacco Use Types Packs/Day Years [...] Date Jhony rded Speak language other than Pakistani at home Not on file 03/18/2023 Want [...] 07/01/2022 10:32 AM EDT Plan of Treatment Not on file Insurance [facility] Care Teams Gourmet Coffee Attendant Relationship Specialty Start Date End Date Nadia Sam, LINING CEMENTER [address] [place] [address] PCP - General Nurse Practitioner 03/18/23
--- OUTSIDE RECORDS SUMMARY | 2024-08-13 15:09 | XMS_ITS | Encounter Summary ---
Author Organization [facility] Address [address] [place] [id number] Care Team Providers Care Postal Clerk Name Role Phone Britni Fletcher APRN Primary Care Provi emperatriz Nadia Shin APRN Primary Care Provider + Encounter Details Date Type Department Care Team (Late st Contact Info) Description 11/05/2021 Transcribed Document [facility] Family Medicine [address] [place] [id number] ProviderRodri MD [address] [place] [id number] Social History Tobacco Use Types Packs/Day Years Used Date Smoking Tobacco: Never Assessed Sex and Gender Information Value Date Recorded Sex Assigned at Not on file Legal Sex Male 5:37 PM CDT Gender Identity Not on file Sexual Orientation Not on file documented as of this encounter Miscellaneous Notes * Cerner Conversion Note - Rodri Vitale MD - 11/05/2021 12:08 PM CDT [facility] [address] TARAH HAMLIN :1975 Visit Time:11/05/2021 Your Visit Summary Your Care Team Admitting Physician - DONYA EAST MD-CAR Attending Physician - DONYA EAST MD-CAR Primary Care Physician - NADIA SHIN Referring Physician - DONYA EAST MD-CAR Your Diagnosis Abnormal result of cardiovascular function study, unspecified, Abnormal result of cardiovascular function study, unspecified These Are Your Goals No qualifying data available. Discharge Vitals Temperature 36.3 ??C Heart Rate (Monitored) 44 Respiratory Rate 12 Blood Pressure 101/69 What to do next Instructions From Your Care Team Diet after Discharge: Resume usual diet as tolerated Activity after Discharge: Rest and relax today, No strenuous activity, No lifting more than 1 pound with affected hand for 48 hours. , Driving Restrictions: No driving for 24 hours. Showering/Bathing: May shower., No tub bathing, soaking or swimming for 3-5 days until site is healed. Medications: No changes to your current home medications., Dressing Instructions: You can remove the dressing in 24 hours., Mr Hamlin received Versed 3mg and Fentanyl 50mcq during heart catheterization on 11/05/[address] Donya East. Follow-Up Appointments Follow Up with CHRISTIANO BRUNSON When 11/16/2021 10:00 AM EDT Where: [address] [place] [phone] Perceptis (1) Medications What How Much When Instructions Next Dose aspirin 81 Milligram(s) Oral Every Morning atorvastatin (atorvastatin 10 mg oral tablet) 1 Tablet(s) Oral Every Evening lisinopril (lisinopril 10 mg oral tablet) 1 Tablet(s) Oral Every Day methaDONE 55 Milligram(s) Every Morning Take your [...] This Visit No Immunizations Found Education Materials Radial Site Care The following information offers guidance on how to care for yourself after your procedure. Your health care provider may also give you more specific instructions. If you have problems or questions, contact your health care provider. What can I expect after the procedure? After the procedure, it is common to have bruising and tenderness in the incision area. Follow these instructions at home: Incision site care ??? Follow instructions from your health care provider about how to take care of your incision site. Make sure you: ? Wash your hands with soap and water for at least 20 seconds before and after you change your bandage (dressing). If soap and water are not available, use hand water taxi operator. ? Change or remove your dressing as told by your health care provider. ? Leave stitches (sutures), skin glue, or adhesive strips in place. These skin closures may need to stay in place for 2 weeks or longer. If adhesive strip edges start to loosen and curl up, you may trim the loose edges. Do not remove adhesive strips completely unless your health care provider tells you to do that. ??? Do not take baths, swim, or use a hot tub until your health care provider approves. ??? You may shower 24???48 hours after the procedure or as told by your health care provider. ? Remove the dressing and gently wash the incision area with plain soap and water. ? Pat the area dry with a clean towel. ? Do not rub the site. That could cause bleeding. ??? Do not apply powder or lotion to the site. ??? Check your incision site every day for signs of infection. Check for: ? Redness, swelling, or pain. ? Fluid or blood. ? Warmth. ? Pus or a bad smell. Activity ??? For 24 hours after the procedure, or as directed by your health care provider: ? Do not flex or bend the affected arm. ? Do not push or pull heavy objects with the affected arm. ? Do not operate machinery or power tools. ? Do not drive. You should not drive yourself home from the hospital or clinic if you go home during that time period. You may drive 24 hours after the procedure unless your health care provider tells you not to. ??? Do not lift anything that is heavier than 10 lb (4.5 kg), or the limit that you are told, until your health care provider says that it is safe. ??? Return to your normal activities as told by your health care provider. Ask your health care provider what activities are safe for you and when you can return to work. ??? If you were given a sedative during the procedure, it can affect you for several hours. Do not drive or operate machinery until your health care provider says that it is safe. General instructions ??? Take ticw-rnq-pjrttjl and prescription medicines only as told by your health care provider. ??? If you will be going home right after the procedure, plan to have a responsible adult care for you for the time you are told. This is important. ??? Keep all follow-up visits. This is important. Contact a health care provider if: ??? You have a fever or chills. ??? You have any of these signs of infection at your incision site: ? Redness, swelling, or pain. ? Fluid or blood. ? Warmth. ? Pus or a bad smell. Get help right away if: ??? The incision area swells very fast. ??? The incision area is bleeding, and the bleeding does not stop when you hold steady pressure on the area. ??? Your arm or hand becomes pale, cool, tingly, or numb. These symptoms may represent a serious problem that is an emergency. Do not wait to see if the symptoms will go away. Get medical help right away. Call your local emergency services (911 in the [place] Do not drive yourself to the hospital. Summary ??? After the procedure, it is common to have bruising and tenderness at the incision site. ??? Follow instructions from your health care provider about how to take care of your radial site incision. Check the incision every day for signs of infection. ??? Do not lift anything that is heavier than 10 lb (4.5 kg), or the limit that you are told, until your health care provider says that it is safe. ??? Get help right away if the incision area swells very fast, you have bleeding at the incision site that will not stop, or your arm or hand becomes pale, cool, or numb. This information is not intended to replace advice given to you by your health care provider. Make sure you discuss any questions you have with your health care provider. Document Revised: 04/15/2021 Document Reviewed: 04/15/2021 [employer] Patient Education ?? 2021 [employer] Moderate Conscious Sedation, Adult, Care After This sheet gives you information about how to care for yourself after your procedure. Your health care provider may also give you more specific instructions. If you have problems or questions, contact your health care provider. What can I expect after the procedure? After the procedure, it is common to have: ??? Sleepiness for several hours. ??? Impaired judgment for several hours. ??? Difficulty with balance. ??? Vomiting if you eat too soon. Follow these instructions at home: For the time period you were told by your health care provider: ??? Rest. ??? Do not participate in activities where you could fall or become injured. ??? Do not drive or use machinery. ??? Do not drink alcohol. ??? Do not take sleeping pills or medicines that cause drowsiness. ??? Do not make important decisions or sign legal documents. ??? Do not take care of children on your own. Eating and drinking ??? Follow the diet recommended by your health care provider. ??? Drink enough fluid to keep your urine pale yellow. ??? If you vomit: ? Drink water, juice, or soup when you can drink without vomiting. ? Make sure you have little or no nausea before eating solid foods. General instructions ??? Take mvll-qey-wlxspad and prescription medicines only as told by your health care provider. ??? Have a responsible adult stay with you for the time you are told. It is important to have someone help care for you until you are awake and alert. ??? Do not smoke. ??? Keep all follow-up visits as told by your health care provider. This is important. Contact a health care provider if: ??? You are still sleepy or having trouble with balance after 24 hours. ??? You feel light-headed. ??? You keep feeling nauseous or you keep vomiting. ??? You develop a rash. ??? You have a fever. ??? You have redness or swelling around the IV site. Get help right away if: ??? You have trouble breathing. ??? You have new-onset confusion at home. Summary ??? After the procedure, it is common to feel sleepy, have impaired judgment, or feel nauseous if you eat too soon. ??? Rest after you get home. Know the things you should not do after the procedure. ??? Follow the diet recommended by your health care provider and drink enough fluid to keep your urine pale yellow. ??? Get help right away if you have trouble breathing or new-onset confusion at home. This information is not intended to replace advice given to you by your health care provider. Make sure you discuss any questions you have with your health care provider. Document Revised: 06/23/2020 Document Reviewed: 01/20/2020 [employer] Patient Education ?? 2021 [employer] Health Risks of Smoking Smoking tobacco is very bad for your health. Tobacco smoke contains many toxic chemicals that can damage every part of your body. Secondhand smoke can be harmful to those around you. Tobacco or nicotine use can cause many long-term (chronic) diseases. Smoking is difficult to quit because a chemical in tobacco, called nicotine, causes addiction or dependence. When you smoke and inhale, nicotine is absorbed quickly into the bloodstream through your lungs. Both inhaled and non-inhaled nicotine may be addictive. How can quitting affect me? There are health benefits of quitting smoking. Some benefits happen right away and others take time. Benefits may include: ??? Blood flow, blood pressure, heart rate, and lung capacity may begin to improve. However, any lung damage that has already occurred cannot be repaired. ??? Temporary respiratory symptoms, such as nasal congestion and cough, may improve over time. ??? Your risk of heart disease, stroke, and cancer is reduced. ??? The overall quality of your health may improve. ??? You may save money, as you will not spend money on tobacco products and may spend less money on smoking-related health issues. What can increase my risk? Smoking harms nearly every organ in the body. People who smoke tobacco have a shorter life expectancy and an increased risk of many serious medical problems. These include: ??? More respiratory infections, such as colds and pneumonia. ??? Cancer. ??? Heart disease. ??? Stroke. ??? Chronic respiratory diseases. ??? Delayed wound healing and increased risk of complications during surgery. ??? Problems with reproduction, , and childbirth, such as infertility, early (premature) births, stillbirths, and defects. Secondhand smoke exposure to children increases the risk of: ??? Sudden infant syndrome (SIDS). ??? Infections in the nose, throat, or airways (respiratory infections). ??? Chronic respiratory symptoms. What actions can I take to quit? Smoking is an addiction that affects both your body and your mind, and long-time habits can be hard to change. Your health care provider can recommend: ??? Nicotine replacement products, such as patches, gum, and nasal sprays. Use these products only as directed. Do not replace cigarette smoking with electronic cigarettes, which are commonly called e-cigarettes. The safety of e-cigarettes is not known, and some may contain harmful chemicals. ??? Programs and community resources, which may include group support, education, or talk therapy. ??? Prescription medicines to help reduce cravings. ??? A combination of two or more quit methods, which will increase the success of quitting. Where to find support Follow the recommendations from your health care provider about support groups and other assistance. You can also visit: ??? [place] Quitline [employer]: www.naquitline.org or call 0-451-TBOV-NOW. ??? [place]. Department of Health and Human Services: www.smokefree.gov ??? [place] Lung Association: www.freedomfromsmoking.org ??? [place] Heart Association: www.heart.org Where to find more information ??? Centers for Disease Control and Prevention: www.cdc.gov ??? World Health Organization: www.who.int Summary ??? Smoking tobacco is very bad for your health. Tobacco smoke contains many toxic chemicals that can damage every part of the body. ??? Smoking is difficult to quit because a chemical in tobacco, called nicotine, causes addiction or dependence. ??? There are immediate and long-term health benefits of quitting smoking. ??? A combination of two or more quit methods increases the success of quitting. This information is not intended to replace advice given to you by your health care provider. Make sure you discuss any questions you have with your health care provider. Document Revised: 04/10/2020 Document Reviewed: 04/10/2020 [employer] Patient Education ?? 2021 [employer] Smoking and Musculoskeletal Health Smoking is bad for your health. Most people know that smoking causes lung disease, heart disease, and cancer. But people may not realize that it also affects their bones, muscles, and joints (musculoskeletal system). When you smoke, the effects on your lungs and heart result in less oxygen for your musculoskeletal system. This can lead to poor bone and joint health. How can smoking affect my musculoskeletal health? Smoking can: ??? Increase your risk of having weak, thin bones (osteoporosis). Elderly smokers are at higher risk for bone fractures related to osteoporosis. ??? Decrease the ability of bone-forming cells to make and replace bone (in addition to reducing oxygen and blood flow). ??? Reduce your body's ability to absorb calcium from your diet. Less calcium means weaker bones. ??? Interfere with the breakdown of the female hormone estrogen. Smoking lowers estrogen, which is a hormone that helps keep bones strong. Women who smoke may have earlier menopause. Menopause is a risk factor for osteoporosis. ??? Weaken the tissues that attach bones to muscles (tendons). This can lead to shoulder, back, and other joint injuries. ??? Increase your risk of rheumatoid arthritis or make the condition worse if you already have it. ??? Slow down healing and increase your risk of infection and other complications if you have a bone fracture or surgery that involves your musculoskeletal system. ??? Make you get out of breath easily. This can keep you from getting the exercise you need to keep your bones and joints healthy. ??? Decrease your appetite and body mass. You may lose weight and muscle strength. This can put you at higher risk for muscle injury, joint injury, and broken bones. What actions can I take to prevent musculoskeletal problems? Quit smoking ??? Do not start smoking. Quit if you already do. Even stopping later in life can improve musculoskeletal health. ??? Do not use any products that contain nicotine or tobacco. Do not replace cigarette smoking with e-cigarettes. The safety of e-cigarettes is not known, and some may contain harmful chemicals. ??? Make a plan to quit smoking and commit to it. Look for programs to help you, and ask your health care provider for recommendations and ideas. ??? Talk with your health care provider about using nicotine replacement medicines to help you quit, such as gum, lozenges, patches, sprays, or pills. Make other lifestyle changes ??? Eat a healthy diet that includes calcium and vitamin D. These nutrients are important for bone health. ? Calcium is found in dairy foods and green leafy vegetables. ? Vitamin D is found in eggs, fish, and liver. ? Many foods also have vitamin D and calcium added to them (are fortified). ? Ask your health care provider if you would benefit from taking a supplement. ??? Get out in the sunshine for a short time every day. This increases production of vitamin D. ??? Get 30 minutes of exercise at least 5 days a week. Weight-bearing and strength exercises are best for musculoskeletal health. Ask your health care provider what type of exercise is safe for you. ??? Do not drink alcohol if: ? Your health care provider tells you not to drink. ? You are , may be , or are planning to become . ??? If you drink alcohol, limit how much you have: ? 0???1 drink a day for women. ? 0???2 drinks a day for men. ??? Be aware of how much alcohol is in your drink. In the [place] one drink equals one 12 oz bottle of beer (355 mL), one 5 oz glass of wine (148 mL), or one 1?? oz glass of hard liquor (44 mL). Where to find more information You may find more information about smoking, musculoskeletal health, and quitting smoking from: ??? [place] [employer]: orthoinfo.aaos.org ??? National Institutes of Health, Osteoporosis and Related Bone Diseases National Resource Center: bones.nih.gov ??? HelpGuide.org: helpguide.org ??? Smokefree.gov: smokefree.gov ??? [place] Lung Association: lung.org Contact a health care provider if: ??? You need help to quit smoking. Summary ??? When you smoke, the effects on your lungs and heart result in less oxygen for your musculoskeletal system. ??? Even stopping smoking later in life can improve musculoskeletal health. ??? Do not use any products that contain nicotine or tobacco, such as cigarettes and e-cigarettes. ??? If you need help quitting, ask your health care provider. This information is not intended to replace advice given to you by your health care provider. Make sure you discuss any questions you have with your health care provider. Document Revised: 11/19/2019 Document Reviewed: 06/22/2018 [employer] Patient Education ?? 2021 [employer] Steps to Quit Smoking Smoking tobacco is the leading cause of preventable . It can affect almost every organ in the body. Smoking puts you and people around you at risk for many serious, long-lasting (chronic) diseases. Quitting smoking can be hard, but it is one of the best things that you can do for your health. It is never too late to quit. How do I get ready to quit? When you decide to quit smoking, make a plan to help you succeed. Before you quit: ??? Pick a date to quit. Set a date within the next 2 weeks to give you time to prepare. ??? Write down the reasons why you are quitting. Keep this list in places where you will see it often. ??? Tell your family, friends, and co-workers that you are quitting. Their support is important. ??? Talk with your doctor about the choices that may help you quit. ??? Find out if your health insurance will pay for these treatments. ??? Know the people, places, things, and activities that make you want to smoke (triggers). Avoid them. What first steps can I take to quit smoking? Throw away all cigarettes at home, at work, and in your car. ??? Throw away the things that you use when you smoke, such as ashtrays and lighters. ??? Clean your car. Make sure to empty the ashtray. ??? Clean your home, including curtains and carpets. What can I do to help me quit smoking? Talk with your doctor about taking medicines and seeing a counselor at the same time. You are more likely to succeed when you do both. ??? If you are or , talk with your doctor about counseling or other ways to quit smoking. Do not take medicine to help you quit smoking unless your doctor tells you to do so. To quit smoking: Quit right away ??? Quit smoking totally, instead of slowly cutting back on how much you smoke over a period of time. ??? Go to counseling. You are more likely to quit if you go to counseling sessions regularly. Take medicine You may take medicines to help you quit. Some medicines need a prescription, and some you can buy lnuj-fgk-xqtyhoo. Some medicines may contain a drug called nicotine to replace the nicotine in cigarettes. Medicines may: ??? Help you to stop having the desire to smoke (cravings). ??? Help to stop the problems that come when you stop smoking (withdrawal symptoms). Your doctor may ask you to use: ??? Nicotine patches, gum, or lozenges. ??? Nicotine inhalers or sprays. ??? Non-nicotine medicine that is taken by mouth. Find resources Find resources and other ways to help you quit smoking and remain smoke-free after you quit. These resources are most helpful when you use them often. They include: ??? Online chats with a counselor. ??? Phone quitlines. ??? Printed self-help materials. ??? Support groups or group counseling. ??? Text messaging programs. ??? Mobile phone apps. Use apps on your mobile phone or tablet that can help you stick to your quit plan. There are many free apps for mobile phones and tablets as well as websites. Examples include Quit Guide from the CDC and smokefree.gov What things can I do to make it easier to quit? Talk to your family and friends. Ask them to support and encourage you. ??? Call a phone quitline (7-629-ZIMNNOW), reach out to support groups, or work with a counselor. ??? Ask people who smoke to not smoke around you. ??? Avoid places that make you want to smoke, such as: ? Bars. ? Parties. ? Smoke-break areas at work. ??? Spend time with people who do not smoke. ??? Lower the stress in your life. Stress can make you want to smoke. Try these things to help your stress: ? Getting regular exercise. ? Doing deep-breathing exercises. ? Doing yoga. ? Meditating. ? Doing a body scan. To do this, close your eyes, focus on one area of your body at a time from head to toe. Notice which parts of your body are tense. Try to relax the muscles in those areas. How will I feel when I quit smoking? Day 1 to 3 weeks Within the first 24 hours, you may start to have some problems that come from quitting tobacco. These problems are very bad 2???3 days after you quit, but they do not often last for more than 2???3 weeks. You may get these symptoms: ??? Mood swings. ??? Feeling restless, nervous, angry, or annoyed. ??? Trouble concentrating. ??? Dizziness. ??? Strong desire for high-sugar foods and nicotine. ??? Weight gain. ??? Trouble pooping (constipation). ??? Feeling like you may vomit (nausea). ??? Coughing or a sore throat. ??? Changes in how the medicines that you take for other issues work in your body. ??? Depression. ??? Trouble sleeping (insomnia). Week 3 and afterward After the first 2???3 weeks of quitting, you may start to notice more positive results, such as: ??? Better sense of smell and taste. ??? Less coughing and sore throat. ??? Slower heart rate. ??? Lower blood pressure. ??? Clearer skin. ??? Better breathing. ??? Fewer sick days. Quitting smoking can be hard. Do not give up if you fail the first time. Some people need to try a few times before they succeed. Do your best to stick to your quit plan, and talk with your doctor if you have any questions or concerns. Summary ??? Smoking tobacco is the leading cause of preventable . Quitting smoking can be hard, but it is one of the best things that you can do for your health. ??? When you decide to quit smoking, make a plan to help you succeed. ??? Quit smoking right away, not slowly over a period of time. ??? When you start quitting, seek help from your doctor, family, or friends. This information is not intended to replace advice given to you by your health care provider. Make sure you discuss any questions you have with your health care provider. Document Revised: 11/19/2019 Document Reviewed: 05/15/2019 Elsevier Patient Education ?? 2021 [employer] Emergency Awareness and Preventative Care STROKE [...] Assistance with quitting is available by contacting 8-560-GSRVNOW. This is a free resource providing counseling, support, and referral. Or you may contact your personal physician. [employer] Suicide Prevention Lifeline: The National Suicide Prevention [...] This Visit (last charted value for your 11/05/2021 visit) Hematology 11/05/2021 9:16 AM Platelet Count: 249 K/uL -- Normal range between ( 163 and 369 ) Patient Name:TARAH HAMLIN I have received and understand this information and was given the opportunity to ask questions. 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 Name: 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 Signature: Relationship to Patient: Clinician/Hospital Sewage Treatment Plant Operator Signature: Date: documented in this encounter Plan of Treatment Not on file documented as of this encounter Visit Diagnoses Not on filedocumented in this encounter Care Teams Postal Clerk Relationship Specialty Start Date End Date Delia-Britni Cardoza APRN [address] [facility] [address] [place] [address] PCP - General Family Medicine 07/01/22 03/17/23 Nadia Shin APRN [address] [place] [address] PCP - General Nurse Practitioner 03/18/23 documented as of this encounter
--- OUTSIDE RECORDS SUMMARY | 2024-08-13 15:09 | XMS_ITS | Encounter Summary ---
Author Organization [facility] Address [address] [place] [id number] Care Team Providers Care Venetian Blind Worker Name Role Phone Britni Fletcher APRN Primary Care Provi emperatriz Nadia Sam APRN Primary Care Provider + Encounter Details Date Type Department Care Team (Late st Contact Info) Description 11/05/2021 Transcribed Document [facility] [place] [address] [place] [address] ProviderRodri MD [address] [place] [id number] Social History Tobacco Use Types Packs/Day Years Used Date Smoking Tobacco: Never Assessed Sex and Gender Information Value Date Recorded Sex Assigned at Not on file Legal Sex Male 5:37 PM CDT Gender Identity Not on file Sexual Orientation Not on file documented as of this encounter Miscellaneous Notes * Cerner Conversion Note - Rodri Vitale MD - 11/05/2021 12:04 PM CDT Patient Education Materials Follows:Medicine Radial Site Care The following information offers [...] and water are not available, use hand healthcare or medical. ? Change or remove your dressing as [...] care provider approves. ??? You may shower 24?48 hours after the procedure or as told [...] it is safe. General instructions ??? Take imfi-gtw-alecuek and prescription medicines only as told by [...] provider. Document Revised: 04/15/2021 Document Reviewed: 04/15/2021 ElseBasys Patient Education ? 2021 [employer] Orthopedics Smoking and Musculoskeletal Health Smoking is bad [...] alcohol, limit how much you have: ? 0?1 drink a day for women. ? 0?2 drinks a day for men. ??? Be aware of how much alcohol is in your drink. In the [place] one drink equals one 12 oz bottle of beer (355 mL), one 5 oz glass of wine (148 mL), or one 1? oz glass of hard liquor (44 mL). Where to find more information You may find more information about smoking, musculoskeletal health, and quitting smoking from: ??? [place] [employer]: orthoinfo.aaos.org ??? National Institutes of Health, Osteoporosis and Related Bone Diseases National Resource Center: bones.nih.gov ??? HelpGuide.org: helpguide.org ??? Smokefree.gov: smokefree.gov ??? [place] Lung Association: lung.org Contact a health care [...] provider. Document Revised: 11/19/2019 Document Reviewed: 06/22/2018 [employer] Patient Education ? 2021 Elsevier Inc. Pharmacology Moderate Conscious Sedation, Adult, Care After This [...] eating solid foods. General instructions ??? Take xvrf-lhh-crknmzc and prescription medicines only as told by [...] provider. Document Revised: 06/23/2020 Document Reviewed: 01/20/2020 ElseBasys Patient Education ? 2021 [employer] Pulmonary Medicine Health Risks of Smoking Smoking tobacco is [...] other assistance. You can also visit: ??? [place] Quitline Consortium: www.[employer] or call 9-258-QLKS-NOW. ??? U.S. Department of Health and Human Services: www.smokefree.gov ??? [place] Lung Association: www.freedomfromsmoking.org ??? [place] Heart Association: www.heart.org Where to find more [...] provider. Document Revised: 04/10/2020 Document Reviewed: 04/10/2020 ElseBasys Patient Education ? 2021 [employer] Steps to Quit Smoking Smoking tobacco [...] a prescription, and some you can buy psxd-fav-qflwawm. Some medicines may contain a drug called [...] encourage you. ??? Call a phone quitline (7-283-ZAGCNOW), reach out to support groups, or work [...] quitting tobacco. These problems are very bad 2?3 days after you quit, but they do not often last for more than 2?3 weeks. You may get these symptoms: ??? [...] Week 3 and afterward After the first 2?3 weeks of quitting, you may start to [...] provider. Document Revised: 11/19/2019 Document Reviewed: 05/15/2019 [employer] Patient Education ? 2021 [employer]. Electronically signed by Giovanni Mckinney Conversion Drilling And Production Superintendent Cerner at 06/28/2022 10:45 AM CDT documented in this encounter Plan of Treatment Not on file documented as of this encounter Visit Diagnoses Not on filedocumented in this encounter Care Teams Venetian Blind Worker Relationship Specialty Start Date End Date Delia-Britni Cardoza APRN [address] [address] PCP - General Family Medicine 07/01/22 03/17/23 Nadia Sam APRN [address] [place] [address] PCP - General Nurse Practitioner 03/18/23 documented as of this encounter
--- OUTSIDE RECORDS SUMMARY | 2024-08-13 15:09 | XMS_ITS | Encounter Summary ---
Author Organization [facility] Address [address] [place] [address] Care Team Providers Care Biofuels Product Development Manager Name Role Phone Britni Fletcher APRN Primary Care Provi emperatriz Nadia Sam APRN Primary Care Provider + Encounter Details Date Type Department Care Team (Late st Contact Info) Description 11/05/2021 Transcribed Document [facility] [place] [address] [place] [address] ProviderRodri MD [address] [place] [address] Social History Tobacco Use Types Packs/Day Years Used Date Smoking Tobacco: Never Assessed Sex and Gender Information Value Date Recorded Sex Assigned at Not on file Legal Sex Male 5:37 PM CDT Gender Identity Not on file Sexual Orientation Not on file documented as of this encounter Miscellaneous Notes * Cerner Conversion Note - Rodri Vitale MD - 11/05/2021 8:09 AM CDT Patient: TARAH HAMLIN Age: 46 years Sex: Male : 1975 Associated Diagnoses: None Author: DONYA EAST MD-CAR Basic Information PCP: Nadia Sam Plate Washer: Dr. Sosa Chief Complaint Chest Pain, Abnormal Stress History of Present Illness 46 year old female with a history of HTN, HLD, and Smokeless Tobacco Use. The patient reports chest pain x4 months. He describes the pain as sharp, worse with exertion, and relieves with rest. The pain radiates to his neck and he has associated SOA. He had an abnormal GXT on 10/22/21 showing EKG changes in the inferolateral leads with exertion persisting 4 minutes into recovery up to 2mm horizontal ST depression. Dr. Sosa has referred him for [facility] to further evaluate. Patient presents today for [facility] with Dr. East. Review of Systems Constitutional: Negative except as documented in history of present illness. Eye: Negative except as documented in history of present illness. Ear/Nose/Mouth/Throat: Negative except as documented in history of present illness. Respiratory: Negative except as documented in history of present illness. Cardiovascular: Negative except as documented in history of present illness. Gastrointestinal: Negative except as documented in history of present illness. Genitourinary: Negative except as documented in history of present illness. Hematology/Lymphatics: Negative except as documented in history of present illness. Endocrine: Negative except as documented in history of present illness. Immunologic: Negative except as documented in history of present illness. Musculoskeletal: Negative except as documented in history of present illness. Integumentary: Negative except as documented in history of present illness. Neurologic: Negative except as documented in history of present illness. Psychiatric: Negative except as documented in history of present illness. Health Status No qualifying data available Home Medications (4) Active aspirin 81 mg, Oral, QAM atorvastatin 10 mg oral tablet 10 mg = 1 Tab, Oral, QPM hydroCHLOROthiazide 25 mg oral tablet 25 mg = 1 Tab, Oral, QAM methaDONE 55 mg, QAM Allergies: Allergic Reactions (Selected) No Known Allergies, No qualifying data available Current medications: (Selected) Documented Medications Documented aspirin: 81 mg, Oral, QAM, 0 Refill(s) atorvastatin 10 mg oral tablet: 1 Tab, Oral, QPM, 0 Refill(s) hydroCHLOROthiazide 25 mg oral tablet: 1 Tab, Oral, QAM, 0 Refill(s) methaDONE: 55 mg, QAM, 0 Refill(s), No qualifying data available Problem list: All Problems HTN (hypertension) / SNOMED CT 6829666612 / Confirmed Hypercholesteremia / SNOMED CT 45845838 / Confirmed Substance abuse / SNOMED CT 017497796 / Confirmed, Active Problems (3) HTN (hypertension) Hypercholesteremia Substance abuse Histories No education data available. Social & Psychosocial Habits Tobacco 10/22/2021 Smokeless Tobacco Status Smokeless tobacco user wi Past Medical History: Active HLD - Hyperlipidemia (738997741) HTN - Hypertension (9720753988) Tobacco use (5230805555) Comments: 11/05/2021 EDT 9:07 EDT - Leonarda Fernando RN-ROUNDING Smokeless Family History: CHF - Congestive heart failure Mother: onset at 41 . Procedure history: R ARM SX. R KNEE SURGERY. Social History Social & Psychosocial Habits Tobacco 10/22/2021 Smokeless Tobacco Status Smokeless tobacco user wi . Physical Examination VS/Measurements No qualifying data available General: Alert and oriented, No acute distress. Eye: Pupils are equal, round and reactive to light, Normal conjunctiva. HENT: Normocephalic. Neck: Supple, No jugular venous distention. Respiratory: Lungs are clear to auscultation, Respirations are non-labored, Symmetrical chest wall expansion. Cardiovascular: Normal rate, Regular rhythm, No murmur, Good pulses equal in all extremities. Gastrointestinal: Soft, Non-distended, Normal bowel sounds. Musculoskeletal: Normal range of motion, Normal strength. Integumentary: Warm, Dry, [place]. Neurologic: Alert, Oriented. Psychiatric: Cooperative, Appropriate mood & affect. Review / Management Standard GXT 10/22/21: IMPRESSION: Abnormal GXT tolerance test. The patient did have EKG changes in inferolateral leads with exertion, persisted 4 minutes into recovery up to [address] depression. Will need further cardiac risk stratification. Echo 10/22/21: Impression: Normal sized left ventricle. Normal left ventricular wall thickness. Normal left ventricular systolic function. Estimated ejection fraction 65% +/- 5%. Normal diastolic function. No hemodynamically significant valvular heart disease. Results review: No qualifying data available. Impression and Plan IMPRESSION: * Chest Pain w/ exertional component. -Standard GXT 10/22/21-EKG changes in the inferolateral leads with exertion persisting 4 minutes into recovery up to 2mm horizontal ST depression. -Echo (10/29) EF 65%, valves OK. -Aspirin 81mg daily * HTN -Lisinopril 10mg daily * HLD -Atorvastatin 10mg * Ongoing Smokeless Tobacco Use * Hx of R elbow surgery PLAN; LHC via right radial artery approach with possible percutaneous coronary intervention. Risk and benefits discussed. Patient wishes to proceed. Post cath addendum: Mild CAD. Smoking cessation emphasized. Continue current CV meds, change HCTZ to PRN. Non-cardiac CP evaluation w/ primary MD. Target LDL < 70. RV w/ Dr. Sosa. documented in this encounter Plan of Treatment Not on file documented as of this encounter Visit Diagnoses Not on filedocumented in this encounter Care Teams Biofuels Product Development Manager Relationship Specialty Start Date End Date Delia-Britni Cardoza, KINDERGARTEN TEACHER [address] [address] PCP - General Family Medicine 07/01/22 03/17/23 Nadia Sam, KINDERGARTEN TEACHER [address] [place] [address] PCP - General Nurse Practitioner 03/18/23 documented as of this encounter
--- NOTE | 2024-08-13 15:15 | CA_ITS ---
APPROVED REPORT EXAM: Comprehensive 2D, Doppler, and color-flow Echocardiogram Water/Wastewater Project Manager: Dione Pena [facility], RVS Ht: 5 ft 6 in Wt: 219lbs BSA: 2.08 BP: 140/85 mmHg Indications: Shortness of breath, Abn EKG, Ex-smoker, Murmur 2D Dimensions Left Atrium 3.92 cm LA Volume 69.30 mL LA Volume Index 31.50 mL/m2 (M/F) 16-34 M-Mode Dimensions RVDd 2.47 cm (0.9-2.6) LA Diam 4.13 cm (1.9-4.0) LVDd 5.65 cm (3.5-5.7) LVDs 3.08 cm (3.5-5.7) IVSd 1.11 cm (0.6-1.1) PWd 1.00 cm (0.6-1.1) EF (Teich) 76.20% EPSs 0.36 cm FS 45.50% EDV (Teich) 156.80 mL TAPSE 2.56 (<1.7) ESV (Teich) 37.30 mL LV Diastology E Decel Time 193 (160-240 msec) E/A Ratio 1.72 MED A' 9.70 cm/s LAT A' 7.20 cm/s Aortic Valve XU Index 1.13 cm2/m2 AoV Peak [place]. 142.0 (50-130 cm/s) AO Peak GR. 8.10 mmHg AO Mean GR. 4.00 (<5 mmHg) AO VTI 27.7 (18-25 cm) XU (VTI) 2.49 (2.5-4.5 cm2) Mitral Valve MV A Velocity 58.0 (40-130 cm/s) E/A Ratio 1.72 Tricuspid Valve TR P. Velocity 161.00 cm/s RAP Estimate 10.00 mmHg RVSP 20.40 mmHg Left Ventricle The left ventricle is normal size. The left ventricular systolic function is normal. The left ventricular ejection fraction is within the normal range. There is normal left ventricular wall thickness. There is normal LV segmental wall motion. The left ventricular diastolic function is normal. LVEF is 55%. Right Ventricle Right ventricle is mildly dilated. The right ventricular systolic function is normal. Atria Left atrium is mildly dilated. Right atrium is mildly dilated. There is no Doppler evidence of interatrial shunt. Aortic Valve The aortic valve opens well. There is no aortic valvular stenosis. No aortic regurgitation is present. Mitral Valve The mitral valve is normal in structure. No evidence of mitral valve stenosis. Mild mitral regurgitation. Tricuspid Valve Tricuspid valve is grossly normal in structure and function. Mild tricuspid regurgitation. RVSP is normal. Pulmonic Valve The pulmonary valve is normal in structure. Trace pulmonic regurgitation. Great Vessels The aortic root is normal in size. IVC is normal in size and collapses >50% with inspiration. Pericardium There is no pericardial effusion. Other Information Study Quality: Fair Conclusion Normal biventricular systolic function. Mild RV dilation. Mild biatrial dilation. Mild MR, mild TR. Electronically signed by : Lori Mercado MD 08/17/2024 00:42:41
== END 2024-08-13 23:59 | disposition home or self-care (01) ==
LOC: RT 15:05
PROVIDERS: PCP Family Medicine; Visit Provider Physician Assistant
DX: I08.1 Rheumatic disorders of both mitral and tricuspid valves (principal); R94.31 Abnormal electrocardiogram [ECG] [EKG]; Z87.891 Personal history of nicotine dependence
CPT/HCPCS: 93306

== ENCOUNTER 2024-08-17 07:45 | Day surgery (SDC) | payer MEDICAID, SELFPAY ==
[2024-08-17] VITALS (9 sets, daily range): BP systolic 120–150; BP diastolic 71–90; PULSE 49–74; RESP 18; TEMP 36.6; O2SAT 92–99; BMI 32.3
--- NOTE | 2024-08-17 07:07 | IR_ITS ---
APPROVED REPORT Patient Location: Outpatient PROCEDURES Left heart catheterization Left ventriculogram Selective coronary angiogram INDICATION Angina pectoris, Abnormal Myoview Informed consent was obtained prior to the procedure. COMPLICATIONS NONE Estimated Blood Loss: LESS THAN 10 ML TECHNIQUE One percent lidocaine used to anesthetize the right anterior aspect of the wrist. The right radial artery was accessed via the Seldinger technique. A 6 Thai sheath was placed in the right radial artery. 2.5 mg of Verapamil, 800 mcg of nitroglycerin, 1mg Lidocaine and 5000 U Heparin were given through the arterial sheath. The JL3 catheter was also used to perform left heart catheterization, left ventriculogram and selective coronary angiogram. At the end of the procedure the sheath was removed good hemostasis was achieved using Traclet band, patient was transferred to the postop holding area in stable condition. ANGIOGRAPHIC RESULTS The left main artery Normal The left anterior descending artery Normal The circumflex artery Normal The right coronary artery Normal The HASSAN ventriculogram reveals Preserved 50% The left ventricular end-diastolic pressure 10 mmHg IMPRESSION Normal coronary arteries Preserved ejection fraction Normal LVEDP PLAN 1. Medical management Electronically signed by : Per [place] MD 08/17/2024 14:09:07
[2024-08-17 08:22] LABS: Basophils # 0.1 K/mm3 (0-0.2); Basophils % 1.1 % (0.1-2.0); Eosinophils # 0.3 Kmm3 (0.0-0.4); Eosinophils % 4.7 % (0.1-12.0); Hematocrit 44.4 % (42.0-52.0); Hemoglobin 13.9 g/dL (14.1-18.0); Immature Granulocytes # 0.02 10^3uL; Immature Granulocytes % 0.3 %; Lymphocytes # 2.7 K/mm3 (0.7-4.5); Lymphocytes % 38.9 % (10-50); Mean Corpuscular HGB Conc 31.3 g/dL (31.8-35.4); Mean Corpuscular Hemoglobin 25.3 pg (27.0-31.2); Mean Corpuscular Volume 80.9 fl (80-94); Mean Platelet Volume 10.8 fl (7.4-10.4); Monocytes # 0.6 K/mm3 (0.1-1.0); Monocytes % 8.5 % (1.7-9.3); Neutrophils # 3.2 K/mm3 (1.8-7.8); Neutrophils % 46.5 % (37.0-80.0); Nucleated Red Blood Cells # 0 10^3/uL; Nucleated Red Blood Cells % 0 %; Platelet Count 279 K/mm3 (142-424); Red Blood Count 5.49 M/mm3 (4.60-6.20); Red Cell Distribution Width 13.7 % (11.5-17.5); Red Cell Distribution Width-SD 40.4 fL
[2024-08-17 08:32] LABS: Chloride 105 mmol/L (98-107); Sodium 139 mmol/L (136-145)
[2024-08-17 08:33] LABS: Potassium 3.9 mmoL/L (3.5-5.1)
[2024-08-17 08:36] LABS: Anion Gap 6.9 mEq/L (5-15); Blood Urea Nitrogen 11 mg/dl (9-20); Calcium 8.7 mg/dl (8.4-10.2); Carbon Dioxide 31 mmol/L (22.0-30.0); Creatinine Clearance Estimated 107 mL/min (50-200); Estimated Glomerular Filt Rate 65 ml/min (>60); GFR (African American) 79 ML/MIN (>60); Glucose 105 mg/dl (74-100)
[2024-08-17] MEDS: HEPARIN 1,000 UNITS/500ML NS (CATH LAB) 3000 UNIT IV (09:55)
[2024-08-17] MEDS: 0.9 % SODIUM CHLORIDE 500 ML 25 ML IV (09:58)
[2024-08-17] MEDS: LIDOCAINE 1% 10ML MDV 10 ML IJ (09:58)
[2024-08-17] MEDS: VERAPAMIL 2.5MG/ML 2ML VIAL 2.5 MG IV (09:58)
[2024-08-17] MEDS: NITROGLYCERIN 800MCG/8ML SYR (CATH LAB) 800 MCG IA (09:59)
[2024-08-17] MEDS: HEPARIN 1,000 UNITS/ML 10ML VIAL (CATH LAB) 5000 UNIT IV (09:59)
[2024-08-17] MEDS: MIDAZOLAM HCL 1MG/ML 5ML VIAL 1 MG IV (10:30)
[2024-08-17] MEDS: FENTANYL 100MCG/2ML VIAL 50 MCG IV (10:30)
--- NOTE | 2024-08-17 12:00 | SUR.PHASEII ---
family at bedside. pt sitting up in bed eating lunch.
[2024-08-17] MEDS: IOPAMIDOL-370 (76%);100ML BOTTLE 50 ML IV (14:54)
== END 2024-08-17 12:36 | disposition home or self-care (01) ==
LOC: CATHLAB 07:46
PROVIDERS: Visit Provider Internal Medicine
PROC: 4A023N7 Measurement of Cardiac Sampling and Pressure, Left Heart, Percutaneous Approach (ICD-10-PCS; CPT 93452; principal; 2024-08-17 07:15)
DX: I20.9 Angina pectoris, unspecified (principal); R93.1 Abnormal findings on diagnostic imaging of heart and coronary circulation; R94.31 Abnormal electrocardiogram [ECG] [EKG]; R06.00 Dyspnea, unspecified; Z79.82 Long term (current) use of aspirin; I10 Essential (primary) hypertension; Z87.891 Personal history of nicotine dependence; Z79.1 Long term (current) use of non-steroidal anti-inflammatories (NSAID); Z79.899 Other long term (current) drug therapy; E78.00 Pure hypercholesterolemia, unspecified; Z82.49 Family history of ischemic heart disease and other diseases of the circulatory system
CPT/HCPCS: 93458; 80048; 85025; 99152; C1725; C1760; C1769; J1644; J2003; J3010; J7040; Q9967